=== PATIENT | female | born 1975 | race Caucasian/White ===

== ENCOUNTER 2023-12-12 14:58 | Emergency (ER) | payer OTHER, SELFPAY ==
[2023-12-12 15:08] VITALS: BP 131/89; PULSE 87; RESP 18; TEMP 36.9; O2SAT 97; BMI 31.3
[2023-12-12 15:22] LABS: Appearance Urine Clear (Clear); Bilirubin Urine Negative (Negative); Blood Urine Negative (Negative); Color Urine Yellow (Yellow); Glucose Urine Negative (Negative); Ketones Urine Negative (Negative); Leukocyte Esterase Urine Negative (Negative); Nitrite Urine Negative (Negative); Protein Urine Negative (Negative); Specific Gravity Urine 1.015 (1.000-1.030); Urobilinogen Urine 0.2 (0.2-1.0)
--- NOTE | 2023-12-12 15:41 | CRLHL7_ITS ---
For Patients: As a result of the Century Cures Act, medical imaging exams and procedure reports are released immediately into your electronic medical record. You may view this report before your referring provider. If you have questions, please contact your health care provider. Indication: UPPER ABD PAIN Technique: CT abdomen/pelvis with IV contrast, 98 mL Isovue 370 Comparison: None Findings: Lower thorax: Unremarkable Abdomen/pelvis: The liver, gallbladder and biliary system, pancreas, adrenal glands, kidneys, ureters, and bladder are unremarkable in appearance. The uterus is within normal limits in size. Well-circumscribed slightly heterogeneously enhancing lesion in the anterior uterine body measuring approximately 2.4 centimeters favored to represent an intramural/subserosal fibroid (series number 5, image 101). The right ovary is within normal limits in size and appearance, containing a corpus luteal cyst measuring 2.3 centimeters in greatest dimension. There is no evidence of bowel obstruction or inflammation. The appendix is within normal limits in appearance with either tiny appendicolith versus retained enteric contrast (series number 2, image 103 and 104). Moderate stool burden in the colon. Few colonic diverticula without CT evidence of acute diverticulitis. No free fluid or free air. No abscess. No abdominopelvic lymphadenopathy. The vasculature is unremarkable in appearance. Soft tissue/musculoskeletal: Small fat containing umbilical hernia. The osseous structures are unremarkable in appearance. Impression: 1. No CT evidence of an acute process involving the abdomen or pelvis. 2. Incidental findings as detailed above. Please note that all CT scans at this facility use dose modulation, iterative reconstruction, and/or weight-based dosing when appropriate to reduce radiation dose to as low as reasonably achievable. Dictated by Sage Torres MD @ 12/12/2023 4:28:32 PM (Electronically Signed)
--- NOTE | 2023-12-12 15:49 | ED.ABDPAIN ---
HPI - Abdominal Pain General Chief Complaint: Abdominal Pain Stated Complaint: Abdominal pain Time Seen by Provider: 12/12/23 15:07 History of Present Illness HPI narrative: Patient is a 48-year-old woman who had 36 hours of mid upper abdominal pain earlier in the week. This resolved with symptomatic treatment that she woke this morning and now has had approximately 6 hours of epigastric and mid abdominal pain. She has no reflux symptoms. Patient takes Nexium regularly. She has had no change in her bowel or bladder no fevers no chills no night sweats. The pain is moderate in extends through to her back. No nausea or vomiting. Related Data Home Medications ?Medication ?Instructions ?Recorded ?Confirmed amlodipine 5 mg tablet 5 mg PO DAILY 03/23/23 03/23/23 azithromycin 250 mg tablet 250 mg PO DIRECTED 03/23/23 03/23/23 bupropion HCl 150 mg tablet,12 hr 150 mg PO BID 03/23/23 03/23/23 sustained-release esomeprazole magnesium 40 mg 40 mg PO DAILY 03/23/23 03/23/23 capsule,delayed release gabapentin 400 mg capsule 400 mg PO 3XD 03/23/23 03/23/23 losartan 100 mg tablet 100 mg PO DAILY 03/23/23 03/23/23 semaglutide (weight loss) 1 mg/0.5 mg subcut 03/23/23 03/23/23 mL subcutaneous pen injector (Wegovy) semaglutide (weight loss) 1.7 mg subcut 03/23/23 03/23/23 mg/0.75 mL subcutaneous pen injector (Wegovy) Allergies Allergy/AdvReac Type Severity Reaction Status Date / Time No Known Drug Allergies Allergy Verified 12/12/23 15:54 Review of Systems Status of ROS Reports: 10 or more systems reviewed and unremarkable except as noted in History and below [facility] Medical History Bronchitis ?J40 - Bronchitis, not specified as acute or chronic (ICD-10) Cough ?R05.9 - Cough, unspecified (ICD-10) Exam Narrative: Exam Narrative: EXAM GENERAL: Patient appears comfortable and well. EYES: No scleral icterus. LYMPH: No supraclavicular or cervical lymphadenopathy. SKIN: Visible skin seen during exam normal or with benign process only. EXT: No dependent lower extremity pedal edema. HEART: Regular rate and rhythm with no murmurs, rubs, or gallops. LUNGS: Clear to auscultation bilaterally with no crackles or wheezes. ABD: Soft, non tender, non distended. PSYCH: Good eye contact, speech is not pressured. Const: Vital Signs, click to edit/add: Vital Signs - 24 hr 12/12/23 15:08 Temperature 98.4 F Pulse Rate [Pulse Oximeter] 87 Respiratory Rate 18 Blood Pressure [Ri ght Upper Arm] 131/89 Pulse Oximetry 97 Oxygen Delivery Me thod Room Air Course Course ED Course: Patient seen and examined. CBC CMP lipase CT abdomen pelvis UA pending. Vital Signs Vital signs: Initial Vital Signs Temperature 98.4 F 12/12/23 15:08 Temperature Source Temporal Artery Scan 12/12/23 15:08 Pulse Rate 87 12/12/23 15:08 Respiratory Rate 18 12/12/23 15:08 Blood Pressure 131/89 12/12/23 15:08 Blood Pressure Mean 103 12/12/23 15:08 Pulse Oximetry 97 12/12/23 15:08 Oxygen Delivery Method Room Air 12/12/23 15:08 Vital Signs Temperature 98.4 F 12/12/23 15:08 Pulse Rate 87 12/12/23 15:08 Respiratory Rate 18 12/12/23 15:08 Blood Pressure 131/89 12/12/23 15:08 Pulse Oximetry 97 12/12/23 15:08 Oxygen Delivery Method Room Air 12/12/23 15:08 Temperature 98.4 F 12/12/23 15:08 Pulse Rate 87 12/12/23 15:08 Respiratory Rate 18 12/12/23 15:08 Blood Pressure 131/89 12/12/23 15:08 Pulse Oximetry 97 12/12/23 15:08 Oxygen Delivery Method Room Air 12/12/23 15:08 MDM - Abdominal Pain MDM Narrative Medical decision making narrative: Patient is a 48-year-old woman comes in today with intermittent epigastric and mid abdominal pain. She has had similar problems in the past. She has had no fevers no chills no night sweats CT of the abdomen pelvis shows no obvious cause for symptoms she does have simple ovarian cyst umbilical hernia which is not incarcerated and uterine fibroid. Labs are reassuring ultrasound of the right upper quadrant upon my review shows no acute abnormalities. At this time she will continue current medications. She does have follow-up with primary care and medical assistant ob gyn. Will give her limited number of [place] to help her get some relief in the interim follow-up a p.r.n. basis as described. Lab Data Labs: Lab Results 12/12/23 12/12/23 Range/Units 15:55 Unknown WBC 7.71 (4.50-11.00) K/uL RBC 4.48 (4.00-5.20) m/uL Hgb 13.2 (12.0-16.0) gm/dL Hct 41.0 (33.0-51.0) % MCV 92 (80-100) fL MCH 30 (26-34) pg MCHC 32 (32-36) gm/dL RDW Coeff of Keith 13.6 (11.5-15.5) % Plt Count 270 (140-440) K/uL Neut % (Auto) 55.3 (42.0-72.0) % Lymph % (Auto) 33.7 (20-44) % Hopewell % (Auto) 7.3 (0.0-11.0) % Eos % (Auto) 3.1 (0.0-7.0) % Baso % (Auto) 0.3 (0.0-3.0) % Neut # (Auto) 4.27 (1.7-7.0) K/uL Lymph # (Auto) 2.60 (0.90-2.90) K/uL Hopewell # (Auto) 0.60 (0.00-0.90) K/UL Eos # (Auto) 0.24 (0.00-0.50) K/uL Baso # (Auto) 0.02 (0.00-0.30) K/uL Abs Immat Gran (auto) 0.02 (0.00-0.30) K/uL Imm/Tot Granulo (auto) 0.3 % Sodium 138 (135-149) mmol/L Potassium 4.3 (3.6-5.1) mmol/L Chloride 105 (96-114) mmol/L Carbon Dioxide 26 (20-32) mmol/L Anion Gap 7 (7-15) mEq/L BUN 17 (5-24) mg/dL Creatinine 0.7 (0.5-1.5) mg/dL Estimated Creat Clear 96.62 Estimated GFR 107 ml/min Glucose 96 (60-115) mg/dL Calcium 9.5 (8.4-10.6) mg/dL Total Bilirubin 0.2 (0.1-1.5) mg/dL AST 24 (12-35) U/L ALT 24 (4-35) U/L Alkaline Phosphatase 81 (40-150) U/L Total Protein 7.2 (6.0-8.3) g/dL Albumin 4.6 (3.3-5.0) g/dL Lipase 83 (23-300) U/L Urine Color Yellow (Yellow) Urine Appearance Clear (Clear) Urine pH 7.0 (5.0-8.5) Ur Specific Marlin 1.015 (1.000-1.030) Urine Protein Negative (Negative) Urine Glucose (UA) Negative (Negative) Urine Ketones Negative (Negative) Urine Blood Negative (Negative) Urine Nitrite Negative (Negative) Urine Bilirubin Negative (Negative) Urine Urobilinogen 0.2 (0.2-1.0) Ur Leukocyte Esterase Negative (Negative) Discharge Plan Discharge Clinical Impression: Abdominal pain Patient Disposition: Home, Self-Care Condition: Stable Instructions: Abdominal Pain (ED) Additional Instructions: Etiology of symptoms is unclear Advance diet activity as tolerated. [place] for extreme pain Follow-up as discussed. Continue current medication. Activity Level: No Restrictions Discharge Diet: Regular Prescriptions: No Action azithromycin 250 mg tablet 250 mg PO DIRECTED Wegovy 1.7 mg/0.75 mL pen injector subcut Wegovy 1 mg/0.5 mL pen injector subcut esomeprazole magnesium 40 mg capsule,delayed release(DR/EC) 40 mg PO DAILY amlodipine 5 mg tablet 5 mg PO DAILY gabapentin 400 mg capsule 400 mg PO 3XD bupropion HCl 150 mg tablet sustained-release 12 hr 150 mg PO BID losartan 100 mg tablet 100 mg PO DAILY Follow Up/Referrals: Christina Ko MD [Primary Care Provider] - Stand Alone Forms: Group Therapy Records Info Instructions
[2023-12-12 16:02] LABS: Basophils Absolute Auto 0.02 K/uL (0.00-0.30); Basophils Percent Auto 0.3 % (0.0-3.0); Eosinophils Absolute Auto 0.24 K/uL (0.00-0.50); Eosinophils Percent Auto 3.1 % (0.0-7.0); Hemoglobin* 13.2 gm/dL (12.0-16.0); Immature Granulocytes Abs Auto 0.02 K/uL (0.00-0.30); Immature Granulocytes Pct Auto 0.3 %; Lymphocytes Percent Auto 33.7 % (20-44); Mean Corpuscular HGB Conc 32 gm/dL (32-36); Mean Corpuscular Hemoglobin 30 pg (26-34); Mean Corpuscular Volume 92 fL (80-100); Monocytes Percent Auto 7.3 % (0.0-11.0); Neutrophils Absolute Auto 4.27 K/uL (1.7-7.0); Neutrophils Percent Auto 55.3 % (42.0-72.0); Platelet Count* 270 K/uL (140-440); RDW Coefficient of Variation % 13.6 % (11.5-15.5); Red Blood Count 4.48 m/uL (4.00-5.20); White Blood Count* 7.71 K/uL (4.50-11.00)
[2023-12-12 16:08] LABS: Slide Review Reflex No
[2023-12-12 16:17] LABS: Albumin* 4.6 g/dL (3.3-5.0); Chloride* 105 mmol/L (96-114); Sodium* 138 mmol/L (135-149)
[2023-12-12 16:18] LABS: Potassium* 4.3 mmol/L (3.6-5.1)
[2023-12-12 16:20] LABS: Alkaline Phosphatase* 81 U/L (40-150); Anion Gap 7 mEq/L (7-15); Aspartate Amino Transferase* 24 U/L (12-35); Bilirubin Total* 0.2 mg/dL (0.1-1.5); Blood Urea Nitrogen* 17 mg/dL (5-24); Carbon Dioxide* 26 mmol/L (20-32); Creatinine* 0.7 mg/dL (0.5-1.5); Est. Creatinine Clearance* 96.62; Estimated Glomerular Filt Rate 107 ml/min; Lipase* 83 U/L (23-300); Total Protein* 7.2 g/dL (6.0-8.3)
[2023-12-12 16:21] LABS: Alanine Aminotransferase* 24 U/L (4-35); Calcium* 9.5 mg/dL (8.4-10.6); Glucose* 96 mg/dL (60-115)
--- NOTE | 2023-12-12 16:50 | CRLHL7_ITS ---
For Patients: As a result of the Century Cures Act, medical imaging exams and procedure reports are released immediately into your electronic medical record. You may view this report before your referring provider. If you have questions, please contact your health care provider. INDICATION: RUQ Pain COMPARISON: Same day CT abdomen/pelvis TECHNIQUE: Ultrasound abdomen limited. Real time alvarez scale imaging and color Doppler analysis was performed of the abdomen. FINDINGS: Liver: The liver is normal in size measuring 16.5 cm in length. Normal echogenicity. No focal liver lesions identified. Gallbladder: No stones or sludge. No wall thickening or pericholecystic fluid. Negative sonographic Coelho sign. Bile ducts: The common bile duct measures 1 mm in diameter. Pancreas: Within normal limits where seen. Right kidney: The right kidney measures 10.4 cm in length. No hydronephrosis, calculus, or mass. Vascular: Normal caliber abdominal aorta. The IVC appears patent. The main portal vein is patent with normal flow direction. IMPRESSION: Unremarkable abdominal ultrasound. Dictated by Sage Torres MD @ 12/12/2023 6:41:17 PM (Electronically Signed)
== END 2023-12-12 18:18 | disposition home or self-care (01) ==
PROVIDERS: Emergency Provider Internal Medicine; PCP Family Medicine
DX: R10.13 Epigastric pain (principal)
CPT/HCPCS: 36415; 74177; 76705; 80053; 81003; 83690; 85025; 99283; 99284; Q9967

== ENCOUNTER 2024-06-27 06:34 | Emergency (ER) | payer OTHER, SELFPAY ==
--- OUTSIDE RECORDS SUMMARY | 2024-06-27 06:36 | XMS_ITS | Encounter Summary ---
Author Organization [facility] Address [address] [place] [address] Care Team Providers Care Digital Sales Manager Name Role Phone Christina Ko M.D. Primary Care Provider Encounter Details Date Type Department Care Team (Late st Contact Info) Description 06/16/2024 Orders Only Department of Family Medicine, [facility], in [place], [place] [address] [place] [phone] Christina Ko M.D. [address] [place] [phone] Social History Tobacco Use Types Packs/Day Years Used Date Smoking Tobacco: Former Cigarettes Smokeless Tobacco: Never [facility] Utilities Answer Date Recorded In the past 12 months has th e electric, gas, oil, or water company threatened to shut off services in your home? No 10/20/2023 PHQ-2 Answer Date Recorded PHQ-2 Score 0 08/18/2023 Exercise Vital Sign Answer Date Recorde d On average, how many days pe r week do you engage in moderate to strenuous exercise (like a brisk walk)? 4 days 10/20/2023 On average, how many minutes do you engage in exercise at this level? 60 min 10/20/2023 Hunger Vital Sign Answer Date Recorded Within the past 12 months, y ou worried that your food would run out before you got the money to buy more. Never true 10/20/19 24 Within the past 12 months, t he food you bought just didn't last and you didn't have money to get more. Never true 10/20/2023 PRAPARE - Transportation Answer Date Re corded In the past 12 months, has l ack of transportation kept you from medical appointments or from getting medications? No 10/04 In the past 12 months, has l ack of transportation kept you from meetings, work, or from getting things needed for daily living? No 10/20/2023 Nutrition Answer Date Recorded On average, how many serving s of fruits and vegetables do you eat per day (serving size is equal to 1 cup or approximately the size of a tennis ball)? 0-2 10/20/2023 Dental Answer Date Recorded Dental: Regular Dentist Yes 10/20/19 24 Employment Answer Date Recorded Employment status Employed and actively working without restrictions 10/20/2023 Housing Stability Answer Date Recorded What is your living situation today? I have a [facility] place to live 10/20/2023 Comments No Sex and Gender Information Value Date Recorded Sex Assigned at Female 10/30/2022 11:02 AM CDT Legal Sex Female 1:08 PM CDT Gender Identity Female 10/30/2022 11:02 AM CDT Sexual Orientation Straight 10/30/2022 11 :02 AM CDT documented as of this encounter Plan of Treatment Not on file documented as of this encounter Visit Diagnoses Not on filedocumented in this encounter Care Teams Digital Sales Manager Relationship Specialty Start Date End Date Christina Ko M.D. [address] [place] [phone] PCP - General Family Medicine 08/15/22 documented as of this encounter
--- OUTSIDE RECORDS SUMMARY | 2024-06-27 06:36 | XMS_ITS | Encounter Summary ---
Author Organization [facility] Address [address] [place] [address] Care Team Providers Care Stone Setter Name Role Phone Christina Ko M.D. Primary Care Provider Reason for Visit * Reason Onset Date Comments Quality 05/17/2024 HTN Encounter Details Date Type Department Care Team (Late st Contact Info) Description 05/17/2024 Clinical Communication Department of Family Medicine, [facility], in [place], [place] [address] [place] [phone] Richelle Adams, RJosé MiguelN. Quality (HTN) Social History Tobacco Use Types Packs/Day Years Used Date Smoking Tobacco: Former Cigarettes Smokeless Tobacco: Never [facility] Utilities Answer Date Recorded In the [...] your living situation today? I have a [facility] place to live 10/20/2023 Comments Unknown Sex and Gender Information Value Date Recorded Sex Assigned at Female 10/30/2022 11:02 AM CDT Legal Sex Female 1:08 PM CDT Gender Identity Female 10/30/2022 11:02 AM CDT Sexual Orientation Straight 10/30/2022 11 :02 AM CDT documented as of this encounter Last Filed Vital Signs Vital Sign Reading Time Taken Comments Blood Pressure 150/107 05/18/2024 4:00 AM PAPER SLITTER Juan Diego e Reading Pulse - - Temperature - - Respiratory Rate - - Oxygen Saturation - - Inhaled Oxygen Concentration - - Weight - - Height - - Body Mass Index - - documented in this encounter Plan of Treatment Not on file documented as of this encounter Visit Diagnoses Not on filedocumented in this encounter Care Teams Stone Setter Relationship Specialty Start Date End Date Christina Ko M.D. [address] [place] [phone] PCP - General Family Medicine 08/15/22 documented as of this encounter
--- OUTSIDE RECORDS SUMMARY | 2024-06-27 06:37 | XMS_ITS | Clinical Summary ---
Author Organization [facility] Address [address] [place] [id number] Care Team Providers Care Chief Revenue Officer Name Role Phone Venu Mcclelland MD Unavailable [phone] Ramsey Mahoney MD Unavailable [phone] Barron So DO Unavailable [phone] Christina Ko MD Primary Care Provider [phone] Allergies Active Allergy Reactions Criticality Noted Date Comments Adhesive Tape 01/15/2016 Erythromycin Cramps 09/09/2023 Abdominal pain Promethazine Other (See Comments) High 08/29/2022 Uncontrollable movements Patient stated she had uncontrollable movements Medications esomeprazole (NEXIUM) [address] capsule Take 40 mg by mouth daily Active Melatonin 10 MG TABS tablet Take 10 mg by mouth at bedtime Active cetirizine (ZYRTEC) 10 MG tablet Take 10 mg by mouth daily Active sucralfate (CARAFATE) 1 GM tablet Take 1 g by mouth 2 times daily as needed (reflux) Active doxylamine (UNISOM) 25 MG TABS tablet Take 25 mg by mouth nightly as needed for sleep Active CALCIUM PO Take 1 chew tab by mouth daily Active UNABLE TO FIND MEDICATION NAME: vitamin C gummy. 4 gummies PO daily Active Biotin 72162 MCG TABS Take 1 tablet by mouth daily Active magnesium 500 MG TABS Take 500-2,000 mg by mouth nightly as needed (restless legs) Active diphenhydrAMINE (BENADRYL) 50 MG capsule Take 50 mg by mouth nightly as needed for sleep 05/07/23: Patient takes most nights Active amLODIPine (NORVASC) 5 MG tabletIndications :Elevated blood pressure reading without diagnosis of hypertension Take 1 tablet (5 mg) by mouth daily 90 tablet 3 4 Active losartan (COZAAR) 100 MG tabletIndications :Elevated blood pressure reading without diagnosis of hypertension Take 1 tablet (100 mg) by mouth daily 90 tablet 3 4 Active rOPINIRole (REQUIP) 2 MG tabletIndications :Restless leg syndrome Take 1 tablet (2 mg) by mouth at bedtime 90 tablet 3 4 Active buPROPion (WELLBUTRIN XL) 300 MG 24 hr tabletIndications :Major depressive disorder in full remission, unspecified whether recurrent Take 1 tablet (300 mg) by mouth every morning 90 tablet 1 4 Active gabapentin (NEURONTIN) 400 MG capsuleIndication s:Neuropathy Take 1 to 3 capsules orally at bedtime as needed for treatment of neuropathy. 90 capsule 4 4 Active gabapentin (NEURONTIN) 400 MG capsuleIndication s:Neuropathy Take 1 to 3 capsules orally at bedtime as needed for treatment of neuropathy. 4 Active ondansetron (ZOFRAN) 4 MG tablet Take 4 mg by mouth every 8 hours as needed for nausea Active Active Problems Problem Noted Date Diagnosed Date Abnormal Pap smear of cervix 07/21/2023 Overview (07/23/2023): 2020 COLP (per office visit note. No results to view) 07/14/23 NIL pap, neg HPV. Plan cotest in 3 yrs per provider CIDP (chronic inflammatory demyelinating polyneu ropathy) 05/07/2023 Anxiety 08/30/2022 Depression 08/30/2022 Gastroesophageal reflux disease 08/30/2022 Primary hypertension 08/30/2022 Restless leg syndrome 08/30/2022 Obesity 11/24/2020 Neuropathy 01/16/2016 Immunizations Name Administration Dates Next Due Influenza Vaccine >6 months,quad, PF 02/12/2023 MMR (MMRII) 07/08/2022 Family History Medical History Relation Comments Colon Cancer No family hx of Social History Tobacco Use Types Packs/Day Years Used Date Smoking Tobacco: Former Cigarettes 1 25 Smokeless Tobacco: Never Tobacco Cessation:Counseling Given: Not Answered Comments:vape Alcohol Use Standard Drinks/Week Comments Not Currently 0 (1 standard drink = 0.6 oz pur e alcohol) Social Connection and Isolation Panel [NHANES] A nswer Date Recorded In a typical week, how many times do you talk on the phone with family, friends, or neighbors? Never 07/23/19 How often do you get togethe r with friends or relatives? Never 07/23/2023 How often do you attend chur ch or moravian services? 1 to 4 times per year 07/23/2023 Do you belong to any clubs o r organizations such as oriental orthodox groups, unions, fraternal or athletic groups, or school groups? No 07/23/2023 How often do you attend meet ings of the clubs or organizations you belong to? Never 07/23/2023 Are you , , di vorced, , never , or living with a partner? 07/23/2023 AUDIT-C Answer Date Recorded Q1: How often do you have a drink containing alc ohol? 2-3 times a week 07/23/2023 Q2: How many drinks containi ng alcohol do you have on a typical day when you are drinking? 3 or 4 07/23/2023 Q3: How often do you have si x or more drinks on one occasion? Less than monthly 07/23/2023 PHQ-2 Answer Date Recorded PHQ-2 Score 1 07/27/2023 [facility] - Occupational Stress Questionnaire Answer Date Recorded Do you feel stress - tense, restless, nervous, or anxious, or unable to sleep at night because your mind is troubled all the time - these days? Very much 07/23/2023 Exercise Vital Sign Answer Date Recorde d On average, how many days pe r week do you engage in moderate to strenuous exercise (like a brisk walk)? 3 days 07/23/2023 On average, how many minutes do you engage in exercise at this level? 150+ min 07/23/2023 Adolescent Education Answer Date Record ed Getting School Help Needed Not on file 05/07 Food Insecurity Answer Date Recorded Within the past 12 months, d id you worry that your food would run out before you got money to buy more? No 07/23/2023 Within the past 12 months, d id the food you bought just not last and you didn t have money to get more? No 07/23/2023 Housing Stability Answer Date Recorded Do you have housing? (Gris luna is defined as stable permanent housing and does not include staying ouside in a car, in a tent, in an abandoned building, in an overnight care home, or couch-surfing.) Yes 07/23/2023 Are you worried about losing your housing? No 07/23/2023 Financial Resource Strain Answer Date R ecorded Within the past 12 months, h ave you or your family members you live with been unable to get utilities (heat, electricity) when it was really needed? No 07/23/2023 Transportation Needs Answer Date Record ed Within the past 12 months, h as lack of transportation kept you from medical appointments, getting your medicines, non-medical meetings or appointments, work, or from getting things that you need? No 07/23/2023 Interpersonal Safety Answer Date Record ed Do you feel physically and e motionally safe where you currently live? Yes 07/27/2023 Within the past 12 months, h ave you been hit, slapped, kicked or otherwise physically hurt by someone? No 07/27/2023 Within the past 12 months, h ave you been humiliated or emotionally abused in other ways by your partner or ex-partner? No 07/27/2023 Comments No Sex and Gender Information Value Date Recorded Sex Assigned at Not on file Legal Sex Female 8:32 PM CHIEF ARCHITECT Gender Identity Not on file Sexual Orientation Not on file Last Filed Vital Signs Vital Sign Reading Time Taken Comments Blood Pressure 104/83 09/09/2023 2:50 PM CDT Pulse 85 09/09/2023 2:50 PM CDT Temperature 37 C (98.6 F) 05/08/2023 7:39 PM CHIEF ARCHITECT Respiratory Rate 16 09/09/2023 2:50 PM CDT Oxygen Saturation 94% 09/09/2023 2:40 PM CDT Inhaled Oxygen Concentration - - Weight 93.4 kg (206 lb) 09/09/2023 1:35 PM CDT Height 170.8 cm (5' 7.25) 09/09/2023 1:35 PM CD T Body Mass Index 32.02 09/09/2023 1:35 PM CDT Plan of Treatment Health Maintenance Due Date Last Done Comments CT COLONOGRAPHY 1975 DEPRESSION ACTION PLAN 1975 FIT 1975 FLEX SIG 1975 PHQ-9 1975 sDNA (Cologuard) 1975 HEPATITIS B IMMUNIZATION (1 of 3 - 19+ 3-dose series) 1995 COVID-19 Vaccine ( season) 2023 INFLUENZA VACCINE (#1) 2023 02/12/2023 BMP 05/08/2024 05/08/2023, 05/07/2023 ANNUAL REVIEW OF HM ORDERS 07/26/2024 07/27/2023 YEARLY PREVENTIVE VISIT 08/17/2024 08/18/19 24, 07/27/2023, 07/14/2023 MAMMO SCREENING 12/09/2024 12/09/2022, 12/09/2022 ZOSTER IMMUNIZATION (1 of 2) 2026 HPV FOLLOW-UP 07/13/2026 07/14/2023 PAP FOLLOW-UP 07/13/2026 07/14/2023 DIABETES SCREENING 07/26/2026 07/27/2023, 05/08/2023, 05/07/2023 ADVANCE CARE PLANNING 07/26/2028 07/27/2023 LIPID 07/26/2028 07/27/2023 DTAP/TDAP/TD IMMUNIZATION (2 - Td or Tdap) 08/17/2033 08/18/2023 COLONOSCOPY 09/08/2033 09/09/2023, 09/09/2023 COLORECTAL CANCER SCREENING 09/08/2033 PAP Discontinued 07/14/2023 HEPATITIS C SCREENING Completed 07/27/2023 HIV SCREENING Completed 07/27/2023 HPV IMMUNIZATION Aged Out No longer e ligible based on patient's age to complete this topic MENINGITIS IMMUNIZATION Aged Out No l onger eligible based on patient's age to complete this topic Pneumococcal Vaccine: Pediatrics (0 to 5 Years) and At-Risk Patients (6 to 49 Years) Aged Out No longer eligible b ased on patient's age to complete this topic Procedures Procedure Name Priority Date/Time Associated Diagnosis Comments COLONOSCOPY Routine 09/09/2023 1:17 PM CDT HEMOGLOBIN A1C Routine 07/27/2023 1:47 PM CDT Class 1 obesity due to excess calories without serious comorbidity with body mass index (BMI) of 32.0 to 32.9 in adult HIV ANTIGEN ANTIBODY COMBO Routine 07/27/2023 1:47 PM CDT Screening for HIV (human immunodeficiency virus) HEPATITIS C SCREEN REFLEX TO HCV RNA QUANT AND GENOTYPE Routine 07/27/2023 1:47 PM CDT Need for hepatitis C screening test LIPID PROFILE Routine 07/27/2023 1:47 PM CDT Screening for hyperlipidemia HPV HIGH RISK TYPES DNA CERVICAL Routine 07/14/2023 4:10 PM CDT Screening for malignant neoplasm of cervix GYNECOLOGIC CYTOLOGY Routine 07/14/2023 4:10 PM CDT Screening for malignant neoplasm of cervix BASIC METABOLIC PANEL Routine 05/08/2023 7:21 AM CHIEF ARCHITECT from Last 3 Months or Most Recently Relevant to Health Maintenance Results * COLONOSCOPY (09/09/2023 1:17 PM CDT) COLONOSCOPY [facility] Patient Name: Tamiko Massey Procedure Date: 09/09/2023 1:17 PM Date of : 1975 Admit Type: Outpatient Age: 48 Gender: Female Attending MD: RADHA RIVERS MD, Total Sedation Time: 28 minutes Instrument Name: 223 - Adult Colonoscope Procedure: Colonoscopy Indications: Screening for colorectal malignant neoplasm Providers: RADHA RIVERS MD (Doctor) Referring MD: BARRON SO MD (Referring MD) Medicines: Fentanyl 175 micrograms IV, Midazolam 4 mg IV Complications: No immediate complications. Procedure: Pre-Anesthesia Assessment: - Prior to the procedure, a History and Physical was performed, and patient medications and allergies were reviewed. The patient is competent. The risks and benefits of the procedure and the sedation options and risks were discussed with the patient. All questions were answered and informed consent was obtained. Patient identification and proposed procedure were verified by the physician and the nurse in the endoscopy suite. Mental Status Examination: alert and oriented. Airway Examination: normal oropharyngeal airway and neck mobility. Respiratory Examination: clear to auscultation. CV Examination: normal. Prophylactic Antibiotics: The patient does not require prophylactic antibiotics. Prior Anticoagulants: The patient has taken no anticoagulant or antiplatelet agents. ASA Grade Assessment: II - A patient with mild systemic disease. After reviewing the risks and benefits, the patient was deemed in satisfactory condition to undergo the procedure. The anesthesia plan was to use moderate sedation / analgesia (conscious sedation). Immediately prior to administration of medications, the patient was re-assessed for adequacy to receive sedatives. The heart rate, respiratory rate, oxygen saturations, blood pressure, adequacy of pulmonary ventilation, and response to care were monitored throughout the procedure. The physical status of the patient was re-assessed after the procedure. After obtaining informed consent, the colonoscope was passed under direct vision. Throughout the procedure, the patient's blood pressure, pulse, and oxygen saturations were monitored continuously. The Olympus Adult Colonoscope, Model # [id number], [employer] # [id number] was introduced through the anus and advanced to the cecum, identified by appendiceal orifice and ileocecal valve. The colonoscopy was performed without difficulty. The patient tolerated the procedure. The quality of the bowel preparation was good. Scope withdrawal time was 15 minutes. Findings: The entire examined colon appeared normal on direct and retroflexion views. Impression: - The entire examined colon is normal on direct and retroflexion views. - No specimens collected. Recommendation: - Discharge patient to home (ambulatory). - Repeat colonoscopy in 10 years for screening purposes. Recommend mac sedation next time for patient tolerance Procedure Code(s): --- Professional --- G0121, Colorectal cancer screening; colonoscopy on individual not meeting criteria for high risk Diagnosis Code(s): --- Professional --- Z12.11, Encounter for screening for malignant neoplasm of colon CPT copyright 2021 [employer]. All rights reserved. The codes documented in this report are preliminary and upon superintendent commissary review may be revised to meet current compliance requirements. Radha Rivers MD _ RADHA RIVERS MD 09/09/2023 2:18:48 PM I was physically present for the entire viewing portion of the exam. RADHA RIVERS MD Number of Addenda: 0 Note Initiated On: 09/09/2023 1:17 PM Procedure Date: 09/09/2023 1:17:20 PM Scope Withdrawal Time: 0 hours 14 minutes 55 seconds Total Procedure Duration: 0 hours 28 minutes 45 seconds Estimated Blood Loss: Scope In: 1:45:08 PM Scope Out: 2:13:53 PM RADIOLOGY RESULTS 09/09/2023 1:17 PM CDT Barron So DO PROCEDURES Final Result RADIOLOGY RESULTS * HIV Antigen Antibody Combo (07/27/2023 1:47 PM CDT) HIV Antigen Antibody Combo Nonreactive Nonreactive 07/28/2023 12:14 AM CDT [facility] Comment:Negative HIV-1 p24 a ntigen and HIV-1/2 antibody screening test results usually indicate the absence of HIV-1 and HIV-2 infection. However, such negative results do not rule-out acute HIV infection. If acute HIV-1 or HIV-2 infection is suspected, detection of HIV-1 or HIV-2 RNA is recommended. Blood BLOOD SPECIMEN / Unknown Venipuncture / Unknown 07/27/2023 1:47 PM CDT 07/27/2023 1:48 PM CDT [facility]OD ORDERABLES Final Re sult Performing Organization Address [facility] Co de Phone Number LABORATORY [facility] [place] [facility] [address] [facility], [address] [id number] * Hepatitis C Screen Reflex to HCV RNA Quant and Genotype (07/27/2023 1:47 PM CDT) [facility] Hepatitis C Antibody Nonreactive Nonreactive 07/28/2023 12:02 AM CDT [facility] Comment:A nonreactive screen ing test result does not exclude the possibility of exposure to or infection with HCV. Nonreactive screening test results in individuals with prior exposure to HCV may be due to antibody levels below the limit of detection of this assay or lack of reactivity to the HCV antigens used in this assay. Patients with recent HCV infections (<3 months from time of exposure) may have false- negative HCV antibody results due to the time needed for seroconversion (average of 8 to 9 weeks). Blood BLOOD SPECIMEN / Unknown Venipuncture / Unknown 07/27/2023 1:47 PM CDT 07/27/2023 1:48 PM CDT [facility] LAB - BLOOD ORDERABLES Final Re sult Performing Organization Address [facility] Co de Phone Number LAB[facility]ATORY [facility] [place] [facility] [address] [facility], [address] [id number] [place] [address] * (ABNORMAL) Lipid Profile (07/27/2023 1:47 PM CDT) [facility] Cholesterol 183 <200 mg/dL 07/27/2023 11:47 PM CDT [facility] Triglycerides 178(H) <150 mg/dL 07/27/2023 11:47 PM CDT [facility] Direct Measure HDL 57 >=50 mg/dL 07/27/2023 11:47 PM CDT [facility] LDL Cholesterol Calculated 90 <=100 mg/dL 07/27/2023 11:47 PM CDT [facility] Non HDL Cholesterol 126 <130 mg/dL 07/27/2023 11:47 PM CDT [facility] Patient Fasting > 8hrs? No 07/27/2023 11:47 PM CDT [facility] Blood BLOOD SPECIMEN / Unknown Venipuncture / Unknown 07/27/2023 1:47 PM CDT 07/27/2023 1:48 PM CDT Narrative [facility] - 07/27/2023 11:47 PM CDT Cholesterol Desirable: <200 mg/dL Triglycerides Normal: Less than 150 mg/dL Borderline High: 150-199 mg/dL High: 200-499 mg/dL Very High: Greater than or equal to 500 mg/dL Direct Measure HDL Female: Greater than or equal to 50 mg/dL Male: Greater than or equal to 40 mg/dL LDL Cholesterol Desirable: <100mg/dL Above Desirable: 100-129 mg/dL Borderline High: 130-159 mg/dL High: 160-189 mg/dL Very High: >= 190 mg/dL Non HDL Cholesterol Desirable: 130 mg/dL Above Desirable: 130-159 mg/dL Borderline High: 160-189 mg/dL High: 190-219 mg/dL Very High: Greater than or equal to 220 mg/dL Barron So DO LAB - BLOOD ORDERABLES Final Re sult [facility] [place] [facility] [address] [facility], [address] [place] [address], [facility] * Hemoglobin A1c (07/27/2023 1:47 PM CDT) Hemoglobin A1C 5.2 0.0 - 5.6 % 07/27/2023 1:56 PM CDT [facility] Comment: Normal <5.7% Prediabetes 5.7-6.4% Diabetes 6.5% or higher Note: Adopted from ADA consensus guidelines. Blood BLOOD SPECIMEN / Unknown Venipuncture / Unknown 07/27/2023 1:47 PM CDT 07/27/2023 1:48 PM CDT Barron So DO LAB - BLOOD ORDERABLES Final Re sult LABORATORY [facility] [address] [facility] Lab (no room number, 1st floor of clinic) [place] [address], [facility] [phone] * Pap screen with HPV - recommended age 30 - 65 years (07/14/2023 4:10 PM CDT) Interpretation Negative for Intraepithelial Lesion or Malignancy (NILM) 07/17/2023 10:05 AM CDT [facility] Comment Papanicolaou Test Limitations: Cervical cytology is a screening test with limited sensitivity, and regular screening is critical for cancer prevention. Pap tests are primarily effective for the diagnosis/prevent ion of squamous cell carcinoma, not adenocarcinoma or other cancers. 07/17/2023 10:05 AM CDT [facility] Specimen Adequacy Satisfactory for evaluation, endocervical/colunga sformation zone component absent 07/17/2023 10:05 AM CDT [facility] Clinical Information none 07/17/2023 10:05 AM CDT [facility] LMP/Menopause Date 07/09/2023 07/17/2023 10:05 AM CDT [facility] Reflex Testing Yes regardless of result 07/17/2023 10:05 AM CDT [facility] Previous Abnormal? Yes Comment: hpvhr other/ colp 07/17/2023 10:05 AM CDT [facility] Previous Abnormal Diagnosis HPV HR OTHER POSITIVE AND COLP 07/17/2023 10:05 AM CDT [facility] Performing Labs The technical component of this testing was completed at [facility] 07/17/2023 10:05 AM CDT [facility] Brushing CERVIX UTERI STRUCTURE / Unknown Non-blood Collection / Unknown 07/14/2023 4:10 PM CDT 07/14/2023 4:19 PM CDT Venu Mcclelland MD LAB - BEAKER AP Final Resu lt [facility] Specialty Lab [address] [facility], [address] [address], [facility] * HPV High Risk Types DNA Cervical (07/14/2023 4:10 PM CDT) Other HR HPV Negative Negative 07/20/2023 4:23 PM CDT [facility] HPV16 DNA Negative Negative 07/20/2023 4:23 PM CDT [facility] HPV18 DNA Negative Negative 07/20/2023 4:23 PM CDT [facility] FINAL DIAGNOSIS This patient's sample is negative for HPV DNA. This test was developed and its performance characteristics determined by the [facility], [facility] Laboratory. It has not been cleared or approved by the FDA. The laboratory is regulated under CLIA as qualified to perform high-complexity testing. This test is used for clinical purposes. It should not be regarded as investigational or for research. METHODOLOGY: The Esteban Janelle 4800 system uses automated extraction, simultaneous amplification of HPV (L1 region) and beta-globin, followed by real time detection of fluorescent labeled HPV and beta globin using specific oligonucleotide probes. The test specifically identifies types HPV 16 DNA and HPV 18 DNA while concurrently detecting the rest of the high risk types (31, 33, 35, 39, 45, 51, 52, 56, 58, 59, 66 or 68). COMMENTS: This test is not intended for use as a screening device for woman under age 30 with normal cervical cytology. Results should be correlated with cytologic and histologic findings. Close clinical followup is recommended. 07/20/2023 4:23 PM CDT [facility] Brushing CERVIX UTERI STRUCTURE / Unknown Non-blood Collection / Unknown 07/14/2023 4:10 PM CDT 07/20/2023 8:13 AM CDT Venu Mcclelland MD LAB - BLOOD ORDERABLES Fin al Result [facility] Molecular [facility] [address] [facility] [address] [facility], [address] [place] [address], [facility] * Basic metabolic panel (05/08/2023 7:21 AM [facility]) Sodium 136 135 - 145 mmol/L 05/08/2023 7:57 AM [facility] Comment:Reference intervals for this test were updated on 12/30/2022 to more accurately reflect our healthy population. There may be differences in the flagging of prior results with similar values performed with this method. Interpretation of those prior results can be made in the context of the updated reference intervals. Potassium 4.4 3.4 - 5.3 mmol/L 05/08/2023 7:57 AM [facility] Chloride 106 98 - 107 mmol/L 05/08/2023 7:57 AM [facility] Carbon Dioxide (CO2) 23 22 - 29 mmol/L 05/08/2023 7:57 AM [facility] Anion Gap 7 7 - 15 mmol/L 05/08/2023 7:57 AM [facility] Urea Nitrogen 16.0 6.0 - 20.0 mg/dL 05/08/2023 7:57 AM [facility] Creatinine 0.68 0.51 - 0.95 mg/dL 05/08/2023 7:57 AM [facility] GFR Estimate >90 >60 mL/min/1. 73m2 05/08/2023 7:57 AM [facility] Calcium 9.0 8.6 - 10.0 mg/dL 05/08/2023 7:57 AM [facility] Glucose 96 70 - 99 mg/dL 05/08/2023 7:57 AM [facility] Blood STRUCTURE OF RIGHT UPPER LIMB / Unknown Venipuncture / Unknown 05/08/2023 7:21 AM CHIEF ARCHITECT 05/08/2023 7:25 AM [facility] Ramya Gunderson MD LAB - BLOOD ORDERABLES Fi nal Result LABORATORY [facility] [address], [address] [place] [address], [facility] [phone] from Last 3 Months or Most Recently Relevant to Health Maintenance Insurance [facility] Advance Directives For more information, please contact: [phone] * Full Code (Latest Code Status on File) Date Activated Date Inactivated Comments 05/07/2023 1:26 PM 05/08/2023 9:55 PM All basic and advanced life-sustaining interventions are performed as appropriate Question Answer Comments Code status determined by: Discussion with patie nt/ legal decision maker Care Teams Chief Revenue Officer Relationship Specialty Start Date End Date Christina Ko MD [address] [place] [address] LUIS ALFREDO Saavedra [phone] PCP - General 12/12/23 Venu Mcclelland MD [address] [facility] [address] [place] [address] Assigned OBGYN Provider 07/28/23 Ramsey Mahoney MD [address] [place] [address] Physician Neurology 08/04/23 [place] [address] [place] [address] Assigned PCP 08/27/23
--- OUTSIDE RECORDS SUMMARY | 2024-06-27 06:37 | XMS_ITS | Encounter Summary ---
Author Organization [facility] Address [address] [place] [address] Care Team Providers Care Winder Fixer Name Role Phone No Ref-Primary, Physician Primary Care Provider Venu Mcclelland MD Unavailable [phone] Ramsey Mahoney MD Unavailable [phone] Barron Chase DO Unavailable [phone] Christina Ko MD Primary Care Provider [phone] Encounter Details Date Type Department Care Team (Late st Contact Info) Description 06/29/2023 [facility] [place] [address] [address] Bettie Ramos Social History Tobacco Use Types Packs/Day Years Used Date Smoking Tobacco: Never Comments:vape Alcohol Use Standard Drinks/Week Comments Yes 0 (1 standard drink = 0.6 oz pur e alcohol) Adolescent Education Answer Date Record ed Getting School Help Needed Not on file 05/07 Comments Unknown Sex and Gender Information Value Date Recorded Sex Assigned at Not on file Legal Sex Female 8:32 PM SOA ENGINEER Gender Identity Not on file Sexual Orientation Not on file documented as of this encounter Plan of Treatment Not on file documented as of this encounter Visit Diagnoses Not on filedocumented in this encounter Care Teams Winder Fixer Relationship Specialty Start Date End Date No Ref-Primary, Physician PCP - General 05/04/23 12/11/23 Christina Ko MD [address] [place] [address] LUIS ALFREDO Saavedra [phone] PCP - General 12/12/23 Venu Mcclelland MD [address] [facility] [address] [place] [address] Assigned OBGYN Provider 07/28/23 Ramsey Mahoney MD 9 [place] [address] Physician Neurology 08/04/23 [place] [address] [place] [address] Assigned PCP 08/27/23 documented as of this encounter
--- OUTSIDE RECORDS SUMMARY | 2024-06-27 06:37 | XMS_ITS | Patient Health Record ---
Author Organization [facility] Address [address] [facility] [address] [place] [address] Support Name Relationship Address Phone Tamiko Massey Guarantor Unknown [phone] REASON FOR REFERRAL No Information PLAN OF TREATMENT No Information Insurance Providers Payer Name Payer Address Payer Phone Subscriber Number Group Number Insured Name Patient Relationship to Insured Coverage Start Date Coverage End Date [facility] [employer] [address] [place] [phone] [id number] Tamiko Santiago Self - patient is the insured
--- OUTSIDE RECORDS SUMMARY | 2024-06-27 06:37 | XMS_ITS | Encounter Summary ---
Author Organization [facility] Address [address] [place] [address] Care Team Providers Care Chemistry Laboratory Technician Name Role Phone No Ref-Primary, Physician Primary Care Provider Venu Mcclelland MD Unavailable [phone] Ramsey Mahoney MD Unavailable [phone] Barron Chase DO Unavailable [phone] Christina Ko MD Primary Care Provider [phone] Encounter Details Date Type Department Care Team (Late st Contact Info) Description 08/26/[address] [facility] [address] [place] [address] Neville Aranda Social History Tobacco Use Types Packs/Day Years Used Date Smoking Tobacco: Former Cigarettes 1 25 Smokeless Tobacco: Never Comments:vape Alcohol Use Standard Drinks/Week Comments Yes 0 (1 standard drink = 0.6 oz pur e alcohol) Social Connection and Isolation Panel [NHANES] A nswer Date Recorded In a typical week, how many times do you talk on the phone with family, friends, or neighbors? Never 07/23/19 24 How often do you get togethe r with friends or relatives? Never 07/23/2023 How often do you attend chur ch or sikhism services? 1 to 4 times per year 07/23/2023 Do you belong to any clubs o r organizations such as gnosticist groups, unions, fraternal or athletic groups, or [...] Answer Date Recorded PHQ-2 Score 1 07/27/2023 [facility] [place] of Occupat ional Health - Occupational Stress [...] Answer Date Recorded Do you have housing? 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 Gender Identity Not on file Sexual Orientation Not on file documented as of this encounter Plan of Treatment Not on file documented as of this encounter Visit Diagnoses Not on filedocumented in this encounter Care Teams Chemistry Laboratory Technician Relationship Specialty Start Date End Date No Ref-Primary, Physician PCP - General 05/04/23 12/11/23 Christina Ko MD [address] [place] [phone] PCP - General 12/12/23 Venu Mcclelland MD [address] [address] Assigned OBGYN Provider 07/28/23 Ramsey Mahoney MD 9 [place] [address] Physician Neurology 08/04/23 [place] [address] [place] [address] Assigned PCP 08/27/23 documented as of this encounter
--- OUTSIDE RECORDS SUMMARY | 2024-06-27 06:37 | XMS_ITS | Encounter Summary ---
Author Organization [facility] Address [address] [place] [address] Care Team Providers Care External Grinder Tender Name Role Phone Christina Ko M.D. Primary Care Provider Encounter Details Date Type Department Care Team (Latest Contact Info) Description 06/07/2024 3:35 PM FINISH REPAIR WORKER - 06/07/2024 11:59 PM FINISH REPAIR WORKER Hospital Encounter Department of Laboratory Medicine in [place], [place] [address] [place] [phone] Christina Ko M.D. [address] [place] [phone] Hypertension Essential Primary Discharge Disposition: Home or Self Care Social History Tobacco Use Types Packs/Day Years Used Date Smoking Tobacco: Former Cigarettes Smokeless Tobacco: Never [facility] Utilities Answer Date Recorded In the past 12 months has [facility] electric, gas, oil, or water [employer] threatened to shut off services in your [...] Date Recorded Dental: Regular Dentist Yes 10/20/19 Employment Answer Date Recorded Employment status Employed and actively working without restrictions 10/20/2023 Housing Stability Answer Date Recorded What is your living situation today? I have a [facility] place to live 10/20/2023 Comments No Sex and Gender Information Value Date Recorded Sex Assigned at Female 10/30/2022 11:02 AM CDT Legal Sex Female 1:08 PM CDT Gender Identity Female 10/30/2022 11:02 AM CDT Sexual Orientation Straight 10/30/2022 11 :02 AM CDT documented as of this encounter Medications at Time of Discharge albuterol 2.5 mg /3 mL nebulizer solution Inhale 2.5 mg every 6 (six) hours as needed. amLODIPine (Norvasc) 5 mg tablet Take 1 tablet (5 mg total) by mouth daily. 90 tablet 3 06/07/2024 biotin 1 mg tablet Take by mouth daily. 10,000 buPROPion (Wellbutrin SR) 150 mg 12 hr tablet Take 1 tablet (150 mg total) by mouth 2 (two) times a day. 180 tablet 3 01/07/2024 cetirizine (ZyrTEC) 10 mg tablet Take 10 mg by mouth daily. cholecalciferol, vitamin D3, 25 mcg (1,000 Unit) tablet Take by mouth daily. 10,000 IU diphenhydrAMINE (BENADRYL) 50 mg capsule Take 50 mg by mouth every 6 (six) hours as needed. At night esomeprazole (NexIUM) [address] capsule Take 1 capsule (40 mg total) by mouth every morning before breakfast. 90 capsule 3 08/21/2023 gabapentin (Neurontin) 400 mg capsule Take 1 capsule (400 mg total) by mouth 3 (three) times a day as needed (sleep). 270 capsule 3 01/07/2024 losartan (Cozaar) 100 mg tablet Take 1 tablet (100 mg total) by mouth daily. 90 tablet 3 01/07/2024 magnesium 200 mg tablet Take 1,600 mg by mouth every morning before breakfast. melatonin 5 mg tablet Take 10 mg by mouth. metoprolol succinate (Toprol XL) 25 mg 24 hr tablet Take 1 tablet (25 mg total) by mouth daily. Do not crush or chew. 90 tablet 3 06/07/2024 multivitamin capsule Take 1 capsule by mouth daily. ondansetron ODT (ZOFRAN-ODT) 4 mg disintegrating tablet Dissolve 1 tablet (4 mg total) in the mouth every 8 (eight) hours as needed for nausea or vomiting. 4 tablet 09/02/2023 rOPINIRole (REQUIP) 2 mg tablet take 1 tablet by mouth at bedtime 90 tablet 3 07/27/2023 sucralfate (Carafate) 1 gram tablet TAKE 1 TABLET BY MOUTH TWICE DAILY BEFORE BREAKFAST AND BEFORE SUPPER 180 tablet 3 11/23/2023 zolpidem (Ambien) 5 mg tablet Take 1 tablet (5 mg total) by mouth at bedtime as needed for sleep. 30 tablet 06/07/2024 5 documented as of this encounter Plan of Treatment Not on file documented as of this encounter Procedures Procedure Name Priority Date/Time Associated Diagnosis Comments BASIC METABOLIC PANEL, S/P Routine 06/07/2024 3:50 PM FINISH REPAIR WORKER Hypertension Essential Primary documented in this encounter Results * (ABNORMAL) Basic Metabolic Panel (06/07/2024 3:50 PM FINISH REPAIR WORKER) Potassium, P 4.2 3.6 - 5.2 mmol/L 06/07/2024 6:49 PM FINISH REPAIR WORKER OWAT Sodium, P 139 135 - 145 mmol/L 06/07/2024 6:49 PM FINISH REPAIR WORKER OWAT Chloride, P 104 98 - 107 mmol/L 06/07/2024 6:49 PM FINISH REPAIR WORKER OWAT Bicarbonate, P 19(L) 22 - 29 mmol/L 06/07/2024 6:49 PM FINISH REPAIR WORKER OWAT Anion Gap, P 16(H) 7 - 15 06/07/2024 6:49 PM FINISH REPAIR WORKER OWAT BUN (Blood Urea Nitrogen), P 8 6 - 21 mg/dL 06/07/2024 6:49 PM FINISH REPAIR WORKER OWAT Creatinine 0.62 0.59 - 1.04 mg/dL 06/07/2024 6:49 PM FINISH REPAIR WORKER OWAT Estimated GFR (eGFR) >90 >=60 mL/min/BSA 06/07/2024 6:49 PM FINISH REPAIR WORKER OWAT Comment: Estimated GFR calculated using the 2020 CKD_EPI creatinine equation. Calcium, Total, P 10.2(H) 8.6 - 10.0 mg/dL 06/07/2024 6:49 PM FINISH REPAIR WORKER OWAT Glucose, P 75 70 - 140 mg/dL 06/07/2024 6:49 PM FINISH REPAIR WORKER OWAT Blood (Blood, Venous) 06/07/2024 3:50 PM FINISH REPAIR WORKER 06/07/2024 5:50 PM FINISH REPAIR WORKER us Christina Ko M.D. LAB BLOOD ADD-ON Final Resul t [facility] [address] [place] [address], [facility] OWAT [facility] [place] [address] [place] [address] documented in this encounter Visit Diagnoses Diagnosis Hypertension Essential Primary documented in this encounter Care Teams External Grinder Tender Relationship Specialty Start Date End Date Christina Ko M.D. [address] [place] [phone] PCP - General Family Medicine 08/15/22 documented as of this encounter
--- OUTSIDE RECORDS SUMMARY | 2024-06-27 06:37 | XMS_ITS | Encounter Summary ---
Author Organization [facility] Address [address] [place] [address] Care Team Providers Care Commercial Credit Portfolio Manager Name Role Phone No Ref-Primary, Physician Primary Care Provider Venu Mcclelland MD Unavailable [phone] Ramsey Mahoney MD Unavailable [phone] Barron Chase DO Unavailable [phone] Christina Ko MD Primary Care Provider [phone] Encounter Details Date Type Department Care Team (Late st Contact Info) Description 09/01/[address] [facility] [address] [place] [address] Erma Waggoner RN Social History Tobacco Use Types Packs/Day Years [...] often do you attend chur ch or anabaptist services? 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 Gender Identity Not on file Sexual Orientation Not on file documented as of this encounter Plan of Treatment Not on file documented as of this encounter Visit Diagnoses Not on filedocumented in this encounter Care Teams Commercial Credit Portfolio Manager Relationship Specialty Start Date End Date No Ref-Primary, Physician PCP - General 05/04/23 12/11/23 Christina Ko MD [address] [place] [phone] PCP - General 12/12/23 Venu Mcclelland MD [address] [address] Assigned OBGYN Provider 07/28/23 Ramsey Mahoney MD [address] [place] [address] Physician Neurology 08/04/23 [place] [address] [place] [address] Assigned PCP 08/27/23 documented as of this encounter
--- OUTSIDE RECORDS SUMMARY | 2024-06-27 06:37 | XMS_ITS | Patient Health Record ---
Author Organization [facility] Address [address] [facility] [address] [place] [address] Care Team Providers Care Fish Housekeeper Name Role Phone Lucia Kamila Primary Care Provider Allergies Allergen (clinical drug ingredient) Drug/Non Drug Allergy documented on EMR Reaction Allergy Type Onset Date Status promethazine Phenergan Unknown Drug Allergy Acti ve Reason For Referral No Information Medications Medication SIG (Take, Route, Frequency, Duration) Notes Start Date End Date Status rOPINIRole HCl 2 MG 1 tablet 1 to 3 hour s before bedtime Orally Once a day for 90 days Active valACYclovir HCl 1 GM 1 tablet Orally On ce a day for 10 day(s) PRN Active PriLOSEC 40 MG 1 capsule 30 minutes before morning meal Orally Once a day for 90 days Active Gabapentin 100 MG 1 capsule Orally Twi ce a day for 90 days Active Gabapentin 400 MG 1 capsule Orally Twi ce a day Active Losartan Potassium 100 MG 1 tablet Orall y Once a day for 30 days Active Norvasc 5 MG 1 tablet Orally Once a day for 30 day(s) Active Vitamin B12 1000 MCG 1 tablet Orally Once a day Active Social History Tobacco Use: Social History Observation Description Date Details (start date - stop date) Unknown Tobacco Use/Smoking Question Answer Notes Are you a Uses tobacco in other forms Problems Problem Type SNOMED Code ICD Code Onset Dates Problem Status W/U Status Risk Notes Problem 31909887 Restless leg (G25.81) Active confirmed Problem [id number] Neuropathy (G62.9) Active confirmed Plan Of Treatment Pending Test Test Name Order Date Home Sleep Study 08/07/2021 Insurance Providers Payer Name Payer Address Payer Phone Subscriber Number Group Number Insured Name Patient Relationship to Insured Coverage Start Date Coverage End Date [facility] [address] [address] [place] [address] [id number] Tamiko Santiago Self - patient is the insured Medical (General) History Medical History History ICD Code Anxiety HTN PTSD Depression Guillain barre syndrome Surgical History Surgery Date(Month/Year) Hospitalization History Reason Date(Month/Year) Guillain [place] Syndrome 2015 [place] toxicity 2020
--- OUTSIDE RECORDS SUMMARY | 2024-06-27 06:37 | XMS_ITS | Encounter Summary ---
Author Organization [facility] Address [address] [place] [address] Care Team Providers Care Dry Molder Name Role Phone No Ref-Primary, Physician Primary Care Provider Venu Mcclleland MD Unavailable [phone] Ramsey Mahoney MD Unavailable [phone] Barron Chase DO Unavailable [phone] Christina Ko MD Primary Care Provider [phone] Encounter Details Date Type Department Care Team (Late st Contact Info) Description 08/17/2023 [facility] Medical Advice [address] [address] [place] [id number] [place] [address] Social History Tobacco Use Types Packs/Day Years [...] often do you attend chur ch or zoroastrianism services? 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 Gender Identity Not on file Sexual Orientation Not on file documented as of this encounter Plan of Treatment Not on file documented as of this encounter Visit Diagnoses Not on filedocumented in this encounter Care Teams Dry Molder Relationship Specialty Start Date End Date No Ref-Primary, Physician PCP - General 05/04/23 12/11/23 Christina Ko MD [address] [place] [phone] PCP - General 12/12/23 Venu Mcclelland MD [address] [id number] Assigned OBGYN Provider 07/28/23 Ramsey Mahoney MD [address] [place], [place] [address] Physician Neurology 08/04/23 [place] [address] [place] [address] Assigned PCP 08/27/23 documented as of this encounter
--- OUTSIDE RECORDS SUMMARY | 2024-06-27 06:37 | XMS_ITS | Clinical Summary ---
Author Organization [facility] Address [address] [place] [address] Care Team Providers Care Knit Goods Mender Name Role Phone Christina Ko M.D. Primary Care Provider Source Comments Patient records contain information from all sites at [facility]. For routine questions regarding patient records, call [phone] during business hours, M-F 8:00 AM - 5:00 PM Central Time. Record requests for emergency care only can be directed to [phone] at any time.[facility] Allergies Active Allergy Reactions Criticality Noted Date Comments Adhesive Rash 01/15/2016 Erythromycin Myalgia 09/09/2023 Abdominal pain Promethazine Other (see comments) 08/29/2022 Patient stated she had uncontrollable movements Medications cetirizine (ZyrTEC) 10 mg tablet Take 10 mg by mouth daily. Active melatonin 5 mg tablet Take 10 mg by mouth. Active diphenhydrAMINE (BENADRYL) 50 mg capsule Take 50 mg by mouth every 6 (six) hours as needed. At night Active cholecalciferol, vitamin D3, 25 mcg (1,000 Unit) tablet Take by mouth daily. 10,000 IU Active biotin 1 mg tablet Take by mouth daily. 10,000 Active multivitamin capsule Take 1 capsule by mouth daily. Active magnesium 200 mg tablet Take 1,600 mg by mouth every morning before breakfast. Active rOPINIRole (REQUIP) 2 mg tablet take 1 tablet by mouth at bedtime 90 tablet 3 07/27/19 24 Active albuterol 2.5 mg /3 mL nebulizer solution Inhale 2.5 mg every 6 (six) hours as needed. Active esomeprazole (NexIUM) [address] capsule Take 1 capsule (40 mg total) by mouth every morning before breakfast. 90 capsule 3 08/21/19 24 Active ondansetron ODT (ZOFRAN-ODT) 4 mg disintegrating tablet Dissolve 1 tablet (4 mg total) in the mouth every 8 (eight) hours as needed for nausea or vomiting. 4 tablet 09/02/19 24 Active sucralfate (Carafate) 1 gram tablet TAKE 1 TABLET BY MOUTH TWICE DAILY BEFORE BREAKFAST AND BEFORE SUPPER 180 tablet 3 11/23/19 24 Active losartan (Cozaar) 100 mg tablet Take 1 tablet (100 mg total) by mouth daily. 90 tablet 3 01/07/20 24 Active buPROPion (Wellbutrin SR) 150 mg 12 hr tablet Take 1 tablet (150 mg total) by mouth 2 (two) times a day. 180 tablet 3 01/07/20 24 Active gabapentin (Neurontin) 400 mg capsule Take 1 capsule (400 mg total) by mouth 3 (three) times a day as needed (sleep). 270 capsule 3 01/07/20 24 Active amLODIPine (Norvasc) 5 mg tablet Take 1 tablet (5 mg total) by mouth daily. 90 tablet 3 06/08/19 25 Active metoprolol succinate (Toprol XL) 25 mg 24 hr tablet Take 1 tablet (25 mg total) by mouth daily. Do not crush or chew. 90 tablet 3 06/08/19 25 Active zolpidem (Ambien) 10 mg tablet Take 1 tablet (10 mg total) by mouth at bedtime as needed for sleep. 30 tablet 1 06/17/19 25 Active UNABLE TO FIND Doxyalamine 50 mg at night 025 Discontin ued(Thera py completed ) vitamins A,C,R-ayhi-aqkcff (ICAPS AREDS) 14,320 Units-226 mg-200 Units per capsule Take 1 capsule by mouth daily. 025 Discontin ued(Thera py completed ) amLODIPine (Norvasc) 10 mg tablet Take 1 tablet (10 mg total) by mouth daily. 90 tablet 3 10/26/19 24 025 Discontin ued(Reord er) zolpidem (Ambien) 5 mg tablet Take 1 tablet (5 mg total) by mouth at bedtime as needed for sleep. 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 06/09/2024 Results Follow-Up Department of [facility], [facility], in [address] [phone] Petar Tenorio, L.P.NJosé Miguel Basic Metabolic Panel 06/07/2024 3:35 PM COPPER PLATE LITHOGRAPHER - 06/07/2024 11:59 PM COPPER PLATE LITHOGRAPHER Hospital Encounter Department of Laboratory Medicine in [address] [phone] Christina Ko M.D. Hypertension Essential Primary Discharge Disposition: Home or Self Care 06/07/2024 3:00 PM COPPER PLATE LITHOGRAPHER Office Visit Department of [facility], [facility], in [address] [phone] Christina Ko M.D. Hypertension Essential Primary (Primary Dx); Insomnia 05/17/2024 Clinical Communication Department of [facility], [facility], in [address] [phone] Richelle Adams R.N. Quality (HTN) 04/12/2024 Orders Only [facility] Christina Ko M.D. Monitoring For Therapeutic Drug Therapy from Last 3 Months Immunizations Immunization Administration Dates Next Due HepB Adult 08/18/2023(Deferred: Patient decision - patient states she received the series in [place]) MMR 07/08/2022 SARS-COV-2 (COVID-19) - MODERNA(Discontinued) 08/18/2023(Deferred: Patient decision) Td, (Adult) Unspecified 08/18/2023(Deferred: Pat ient decision) Tdap 08/18/2023 influenza vaccine quad (FLUZONE/FLUARIX) (6 months and older)(PF) 02/12/2023 Family History Medical History Relation Name Comments Crohn's disease Brother History of substance abuse Father Relation Name Status Comments Brother Father Mother Alive Social History Tobacco Use Types Packs/Day Years Used Date Smoking Tobacco: Former Cigarettes Smokeless Tobacco: Never Tobacco Cessation:Counseling Given: Not Answered [facility] Utilities Answer Date Recorded In the past 12 months has th e [employer], gas, oil, or water [employer] threatened to shut off services in your [...] your living situation today? I have a [facility] place to live 10/20/2023 Comments No Sex and Gender Information Value Date Recorded Sex Assigned at Female 10/30/2022 11:02 AM CDT Legal Sex Female 1:08 PM CDT Gender Identity Female 10/30/2022 11:02 AM CDT Sexual Orientation Straight 10/30/2022 11 :02 AM CDT Last Filed Vital Signs Vital Sign Reading Time Taken Comments Blood Pressure 121/85 06/20/2024 8:00 AM CDT Juan Diego e BP Pulse 69 06/07/2024 3:03 PM COPPER PLATE LITHOGRAPHER Temperature 36.7 C (98.1 F) 06/07/2024 2:51 PM COPPER PLATE LITHOGRAPHER Respiratory Rate 16 08/18/2023 3:55 PM CDT Oxygen Saturation - - Inhaled Oxygen Concentration - - Weight 91 kg (200 lb 9.9 oz) 06/07/2024 2:51 PM COPPER PLATE LITHOGRAPHER Height 170 cm (5' 6.93) 06/07/2024 2:51 PM COPPER PLATE LITHOGRAPHER Body Mass Index 31.49 06/07/2024 2:51 PM COPPER PLATE LITHOGRAPHER Plan of Treatment Health Maintenance Due Date Last Done Comments CT Colonography 1976 Cologuard 1976 FIT 1976 HIV Screening 1976 Hepatitis C Screening 1976 Tobacco Cessation counseling 1976 Hepatitis B Vaccines (1 of 3 - 19+ 3-dose series) 1995 COVID-19 Vaccine ( season) 2023 Influenza Vaccine (#1) 2024 02/12/2023 Depression Screening (Annual PHQ-2) 04/06/2024 Mammogram 12/15/2024 12/16/2023, 08/2022, 12/09/2022, Additional history exists Creatinine Level (Kidney Function Test) 06/07/2025 06/07/2024, 05/08/2023, 05/07/2023, Additional history exists Potassium Level 06/07/2025 06/07/2024, 05/2023, 05/07/2023, Additional history exists Sodium Level 06/07/2025 06/07/2024, 02/05/2023, 05/07/2023, Additional history exists Visit: Chronic Disease, age 18+ 06/07/2025 06/07/2024 Office Visit for Blood Pressure Check / Re-check 06/20/2025 06/20/2024 Cervical/Vaginal Cancer Screening 07/13/2026 07/14/2023 Fasting Glucose for Diabetes Screening 06/08/2027 06/07/2024, 05/08/2023, 05/07/2023, Additional history exists Lipid (Cholesterol) Screening 07/26/2028 07/27/2023, 10/30/2022 DTaP,Tdap,and Td Vaccines (2 - Td or Tdap) 08/17/2033 08/18/2023 Colonoscopy 09/08/2033 09/09/2023 Colorectal Cancer Screening 09/08/2033 IPV Vaccines Aged Out No longer eligi ble based on patient's age to complete this topic Pneumococcal vaccine (0-49 years) Aged Out No longer eligible based on patient's age to complete this topic Procedures Procedure Name Priority Date/Time Associated Diagnosis Comments BASIC METABOLIC PANEL, S/P Routine 06/07/2024 3:50 PM COPPER PLATE LITHOGRAPHER Hypertension Essential Primary BI BREAST SCREENING BILATERAL WITH TOMOSYNTHESIS RAD - Routine (most inpatients and all outpatients) 12/16/2023 1:40 PM CDT Screening Mammogram Breast Cancer LIPID PANEL, S Routine 10/30/2022 11:27 AM CDT Maintenance Health Adult from Last 3 Months or Most Recently Relevant to Health Maintenance Results * (ABNORMAL) Basic Metabolic Panel (06/07/2024 3:50 PM COPPER PLATE LITHOGRAPHER) Potassium, P 4.2 3.6 - 5.2 mmol/L 06/07/2024 6:49 PM COPPER PLATE LITHOGRAPHER OWAT Sodium, P 139 135 - 145 mmol/L 06/07/2024 6:49 PM COPPER PLATE LITHOGRAPHER OWAT Chloride, P 104 98 - 107 mmol/L 06/07/2024 6:49 PM COPPER PLATE LITHOGRAPHER OWAT Bicarbonate, P 19(L) 22 - 29 mmol/L 06/07/2024 6:49 PM COPPER PLATE LITHOGRAPHER OWAT Anion Gap, P 16(H) 7 - 15 06/07/2024 6:49 PM COPPER PLATE LITHOGRAPHER OWAT BUN (Blood Urea Nitrogen), P 8 6 - 21 mg/dL 06/07/2024 6:49 PM COPPER PLATE LITHOGRAPHER OWAT Creatinine 0.62 0.59 - 1.04 mg/dL 06/07/2024 6:49 PM COPPER PLATE LITHOGRAPHER OWAT Estimated GFR (eGFR) >90 >=60 mL/min/BSA 06/07/2024 6:49 PM COPPER PLATE LITHOGRAPHER OWAT Comment: Estimated GFR calculated using the 2020 CKD_EPI creatinine equation. Calcium, Total, P 10.2(H) 8.6 - 10.0 mg/dL 06/07/2024 6:49 PM COPPER PLATE LITHOGRAPHER OWAT Glucose, P 75 70 - 140 mg/dL 06/07/2024 6:49 PM COPPER PLATE LITHOGRAPHER OWAT Blood (Blood, Venous) 06/07/2024 3:50 PM COPPER PLATE LITHOGRAPHER 06/07/2024 5:50 PM COPPER PLATE LITHOGRAPHER us Christina Ko M.D. LAB BLOOD ADD-ON Final Resul t [facility] [address], [place] [address], [facility] OWAT [facility] in [place] [address] [place] [address] * BI Breast Screening Bilateral with Tomosynthesis (12/16/2023 1:40 PM CDT) Anatomical Region Laterality Modality Breast, Breast Imaging RST L OS, Breast Imaging ARZ LOS, Breast Imaging FLA LOS Bilateral Mammography Impressions 12/16/2023 2:11 PM CDT Negative. RECOMMENDATION: Annual Screening Mammogram ASSESSMENT: BI-RADS: 1: Negative. Narrative 12/16/2023 2:11 PM CDT EXAM: BI BREAST SCREENING BILATERAL WITH TOMOSYNTHESIS Current study was evaluated with a Computer Aided Detection (CAD) system. INDICATION: Screening mammogram. COMPARISON: Prior exam(s) were available and reviewed for comparison. DENSITY: b. There are scattered areas of fibroglandular density. FINDINGS: No findings of malignancy. No significant change since prior exam. Procedure Note Eddi Crews M.D. - 12/16/2023 EXAM: BI BREAST SCREENING BILATERAL WITH TOMOSYNTHESIS Current study was evaluated with a Computer Aided Detection (CAD) system. INDICATION: Screening mammogram. COMPARISON: Prior exam(s) were available and reviewed for comparison. DENSITY: b. There are scattered areas of fibroglandular density. FINDINGS: No findings of malignancy. No significant change since priorexam. IMPRESSION: Negative. RECOMMENDATION: Annual Screening Mammogram ASSESSMENT: BI-RADS: 1: Negative. us Christina Ko M.D. IM BI PROCEDURES Final Resu lt * (ABNORMAL) Lipid Panel (10/30/2022 11:27 AM CDT) Triglycerides 91 mg/dL 10/30/2022 1:44 PM CDT OWAT Comment: ----REFERENCE VALUE---- Normal: <150 mg/dL Borderline High: 150-199 mg/dL High: 200-499 mg/dL Very High: > or =500 mg/dL Cholesterol, Total 172 mg/dL 2022 1:44 PM CDT OWAT Comment: ----REFERENCE VALUE---- Desirable: < 200 mg/dL Borderline High: 200 - 239 mg/dL High: > or = 240 mg/dL Cholesterol, LDL, Calculated 108 mg/dL 10/30/2022 1:44 PM CDT OWAT Comment: ----REFERENCE VALUE---- Desirable: <100 mg/dL Above Desirable: 100-129 mg/dL Borderline High: 130-159 mg/dL High: 160-189 mg/dL Very High: >=190 mg/dL ----ADDITIONAL INFORMATION---- LDL cholesterol calculated using the Ferreira/NIH equation. Cholesterol, HDL 47(L) >=50 mg/dL 10/31/19 1:44 PM CDT OWAT Cholesterol, Non-HDL, Calculated 125 mg/dL 10/30/2022 1:44 PM CDT OWAT Comment: ----REFERENCE VALUE---- Desirable: <130 mg/dL Above Desirable: 130-159 mg/dL Borderline High: 160-189 mg/dL High: 190-219 mg/dL Very High: > or =220 mg/dL Fasting (8 HR or more) Yes 10/30/2022 1:22 PM CDT OWAT Blood (Blood, Venous) 10/30/2022 11:27 AM CDT 10/30/2022 1:22 PM CDT us Christina Ko M.D. LAB BLOOD ADD-ON Final Resul t [facility] [address] [place] [address], [place] OWAT [facility] [place] [address] [place] [address] from Last 3 Months or Most Recently Relevant to Health Maintenance Insurance [facility] Care Teams Knit Goods Mender Relationship Specialty Start Date End Date Christina Ko M.D. [address] [place] [address] [place] [phone] PCP - General Family Medicine 08/15/22
--- OUTSIDE RECORDS SUMMARY | 2024-06-27 06:37 | XMS_ITS | Encounter Summary ---
Author Organization [facility] Address [address] [place] [address] Care Team Providers Care Business Systems Architect Name Role Phone Christina Ko M.D. Primary Care Provider Encounter Details Date Type Department Care Team (Late st Contact Info) Description 06/09/2024 Results Follow-Up Department of Family Medicine, [facility], in [place], [place] [address] [facility] [place] [phone] Petar Tenorio, L.P.N. [address], [place] [address] Basic Metabolic Panel Social History Tobacco Use Types Packs/Day Years Used Date Smoking Tobacco: Former Cigarettes Smokeless Tobacco: Never [facility] Utilities Answer Date Recorded In the [...] your living situation today? I have a [facility] place to live 10/20/2023 Comments No [...] on filedocumented in this encounter Care Teams Business Systems Architect Relationship Specialty Start Date End Date Christina Ko M.D. [address] [place] [phone] PCP - General Family Medicine 08/15/22 documented as of this encounter
--- OUTSIDE RECORDS SUMMARY | 2024-06-27 06:37 | XMS_ITS | Encounter Summary ---
Author Organization [facility] Address [address] [place] [address] Care Team Providers Care Flight Instructor Name Role Phone No Ref-Primary, Physician Primary Care Provider Venu Mcclelland MD Unavailable [phone] Ramsey Mahoney MD Unavailable [phone] Barron Chase DO Unavailable [phone] Christina Ko MD Primary Care Provider [phone] Encounter Details Date Type Department Care Team (Late st Contact Info) Description 08/27/2023 MyC Medical Advice [facility] [address] [place] [address] Erma Waggoner RN Social History [...] often do you attend chur ch or mosque services? 1 to 4 times per year 07/23/2023 Do you belong to any clubs o r organizations such as zoroastrian groups, unions, fraternal or athletic groups, or [...] Answer Date Recorded PHQ-2 Score 1 07/27/2023 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 Gender Identity Not on file Sexual Orientation Not on file documented as of this encounter Plan of Treatment Not on file documented as of this encounter Visit Diagnoses Not on filedocumented in this encounter Care Teams Flight Instructor Relationship Specialty Start Date End Date No Ref-Primary, Physician PCP - General 05/04/23 12/11/23 Christina Ko MD [address] [place] [phone] PCP - General 12/12/23 Venu Mcclelland MD [address] [address] Assigned OBGYN Provider 07/28/23 Ramsey Mahoney MD [address] [place] [address] Physician Neurology 08/04/23 [place] [address] [place] [address] Assigned PCP 08/27/23 documented as of this encounter
--- OUTSIDE RECORDS SUMMARY | 2024-06-27 06:37 | XMS_ITS | Encounter Summary ---
Author Organization [facility] Address [address] [place] [address] Care Team Providers Care Submersible Pilot Name Role Phone Christina Ko M.D. Primary Care Provider Reason for Visit * Reason Comments Insomnia And concern with blo od pressure * Appointment Request (Routine) - Closed Specialty Diagnoses / Procedures Referred By Mikael phillips Referred To Contact Family Medicine Referral ID Status Reason Start Date Expiration Date Visits Re quested Visits Authorized [id number] Closed 06/01/2024 09/01/2025 1 1 Encounter Details Date Type Department Care Team (Late st Contact Info) Description 06/07/2024 3:00 PM LENS CLEANER Office Visit Department of Family Medicine, [facility], in [place], [place] [address] [place] [phone] Christina Ko M.D. [address] [place] [phone] Hypertension Essential Primary (Primary Dx); Insomnia Social History Tobacco Use Types Packs/Day Years Used Date Smoking Tobacco: Former Cigarettes Smokeless Tobacco: Never Tobacco Cessation:Counseling Given: Not Answered [facility] Utilities Answer Date Recorded In the past 12 months has e Hab Housing, gas, oil, or water [facility] threatened to shut off services in your [...] money to buy more. Never true 10/20/19 Within the past 12 months, t he [...] your living situation today? I have a [facility] place to live 10/20/2023 Comments No Sex and Gender Information Value Date Recorded Sex Assigned at Female 10/30/2022 11:02 AM CDT Legal Sex Female 1:08 PM CDT Gender Identity Female 10/30/2022 11:02 AM CDT Sexual Orientation Straight 10/30/2022 11 :02 AM CDT documented as of this encounter Last Filed Vital Signs Vital Sign Reading Time Taken Comments Blood Pressure 163/119 06/07/2024 3:03 PM LENS CLEANER Pulse 69 06/07/2024 3:03 PM LENS CLEANER Temperature 36.7 C (98.1 F) 06/07/2024 2:51 PM LENS CLEANER Respiratory Rate - - Oxygen Saturation - - Inhaled Oxygen Concentration - - Weight 91 kg (200 lb 9.9 oz) 06/07/2024 2:51 PM LENS CLEANER Height 170 cm (5' 6.93) 06/07/2024 2:51 PM LENS CLEANER Body Mass Index 31.49 06/07/2024 2:51 PM LENS CLEANER documented in this encounter Progress Notes * Christina Ko M.D. - 06/07/2024 3:00 PM CST Progress Note Patient is 47 years old female with past medical history significant for hyperlipidemia, insomnia, anxiety, depression, GERD, [place], neuropathy, restless leg syndrome, obesity who presented today to the clinic for evaluation of insomnia and hypertension. 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) - Finishes shift at 7AM, attempts sleep by 8:30-9AM after walking dog - Sleep hygiene measures: stops caffeine after 3AM, uses blackout curtains, eye mask with Bluetoothspeakers, fan - Previous sleep medications: - Trazodone: caused dizziness even when lying down - Quetiapine: initially helpful but became less effective - Melatonin: causes headaches if taken in higher doses - Zaleplon: worked temporarily then lost effectiveness - Clonazepam: taken for 25 years until 05/2000 when she had overdosed on - Zolpidem: tried once during hospitalisation with good effect - Doxylamine: discontinued due to racing heart at work (heart rate 110-120) - Recent persistent headache for several days - Experiencing hot flushes - Reports exhaustion affecting work performance - Sleep pattern highly irregular: sometimes sleeps 2-3 hours, other times normal duration - On days off, sleeps entire day and night to catch up - No shortness of breath - No double vision, loss of vision, numbness or tingling - No chest pain - Taking gabapentin consistently for pain management: 400-1200mg at bedtime only - Current medications: bupropion, losartan 100mg, ropinirole, amlodipine 10mg (taking half dose Allergies Allergen Reactions Adhesive Rash Erythromycin Myalgia Abdominal pain Promethazine Other (see comments) Patient stated she had uncontrollable movements Current Medications[1] Medical History[2] Social History[3] REVIEW OF SYSTEMS Vitals: 06/07/24 1451 06/07/24 1503 BP: (!) 168/114 (!) 163/119 BP Location: Left arm Left arm Patient Position: Sitting Sitting Cuff Size: Regular Regular Pulse: 74 69 Temp: 36.7 ??C Weight: 91 kg Height: 170 cm Constitutional Appearance: She is well-developed. HENT Head: Normocephalic and atraumatic. Right Ear: External ear normal. Left Ear: External ear normal. Nose: Nose normal. Eyes Conjunctiva/sclera: Conjunctivae normal. Pupils: Pupils are equal, round, and reactive to light. Cardiovascular Rate and Rhythm: Normal rate and regular rhythm. Heart sounds: Normal heart sounds. Pulmonary Effort: Pulmonary effort is normal. No respiratory distress. Breath sounds: Normal breath sounds. Abdominal General: Bowel sounds are normal. There is no distension. Palpations: Abdomen is soft. There is no mass. Tenderness: There is no abdominal tenderness. There is no guarding. Musculoskeletal General: Normal range of motion. Cervical back: Normal range of motion and neck supple. Skin General: Skin is warm and dry. Neurological Mental Status: She is alert and oriented to person, place, and time. Deep Tendon Reflexes: Reflexes are normal and symmetric. Psychiatric Behavior: Behavior normal. Tamiko was seen today for insomnia. Diagnoses and all orders for this visit: Hypertension Essential Primary - Basic Metabolic Panel; Future - Commence metoprolol 25mg - Continue losartan 100mg - Reduce amlodipine to 5mg - Daily blood pressure monitoring requested with portal updates - Blood tests ordered: BMP - Advised to seek immediate medical attention if experiencing numbness, tingling, chest pain, shortness of breath, or severe headache Insomnia - Commence zolpidem 5mg - Counselled regarding potential side effects - Continue current sleep hygiene measures Other orders - zolpidem (Ambien) 5 mg tablet; Take 1 tablet (5 mg total) by mouth at bedtime as needed for sleep. - amLODIPine (Norvasc) 5 mg tablet; Take 1 tablet (5 mg total) by mouth daily. - metoprolol succinate (Toprol XL) 25 mg 24 hr tablet; Take 1 tablet (25 mg total) by mouth daily. Do not crush or chew. [1] Current Outpatient Medications: albuterol 2.5 mg /3 mL nebulizer solution, Inhale 2.5 mg every 6 (six) hours as needed., Disp: , Rfl: amLODIPine (Norvasc) 5 mg tablet, Take 1 tablet (5 mg total) by mouth daily., Disp: 90 tablet, Rfl:3 biotin 1 mg tablet, Take by mouth daily. 10,000, Disp: , Rfl: buPROPion (Wellbutrin SR) 150 mg 12 hr tablet, Take 1 tablet (150 mg total) by mouth 2 (two) times a day., Disp: 180 tablet, Rfl: 3 cetirizine (ZyrTEC) 10 mg tablet, Take 10 mg by mouth daily., Disp: , Rfl: cholecalciferol, vitamin D3, 25 mcg (1,000 Unit) tablet, Take by mouth daily. 10,000 IU, Disp: , Rfl: diphenhydrAMINE (BENADRYL) 50 mg capsule, Take 50 mg by mouth every 6 (six) hours as needed. At night, Disp: , Rfl: esomeprazole (NexIUM) [address] capsule, Take 1 capsule (40 mg total) by mouth every morning before breakfast., Disp: 90 capsule, Rfl: 3 gabapentin (Neurontin) 400 mg capsule, Take 1 capsule (400 mg total) by mouth 3 (three) times a dayas needed (sleep)., Disp: 270 capsule, Rfl: 3 losartan (Cozaar) 100 mg tablet, Take 1 tablet (100 mg total) by mouth daily., Disp: 90 tablet, Rfl: 3 magnesium 200 mg tablet, Take 1,600 mg by mouth every morning before breakfast., Disp: , Rfl: melatonin 5 mg tablet, Take 10 mg by mouth., Disp: , Rfl: multivitamin capsule, Take 1 capsule by mouth daily., Disp: , Rfl: rOPINIRole (REQUIP) 2 mg tablet, take 1 tablet by mouth at bedtime, Disp: 90 tablet, Rfl: 3 sucralfate (Carafate) 1 gram tablet, TAKE 1 TABLET BY MOUTH TWICE DAILY BEFORE BREAKFAST AND BEFORESUPPER, Disp: 180 tablet, Rfl: 3 metoprolol succinate (Toprol XL) 25 mg 24 hr tablet, Take 1 tablet (25 mg total) by mouth daily. 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 (HCC) Hypertension Essential Primary Insomnia Neuropathy Restless Leg Syndrome [3] Social History Tobacco Use Smoking status: Former Types: Cigarettes Smokeless tobacco: Never Vaping Use Vaping status: current every day use CLEANER documented in this encounter Plan of Treatment Not on file documented as of this encounter Results * (ABNORMAL) Basic Metabolic Panel (06/07/2024 3:50 PM LENS CLEANER) Pathologist [facility] Potassium, P 4.2 3.6 - 5.2 mmol/L 06/07/2024 6:49 PM LENS CLEANER OWAT Sodium, P 139 135 - 145 mmol/L 06/07/2024 6:49 PM LENS CLEANER OWAT Chloride, P 104 98 - 107 mmol/L 06/07/2024 6:49 PM LENS CLEANER OWAT Bicarbonate, P 19(L) 22 - 29 mmol/L 06/07/2024 6:49 PM LENS CLEANER OWAT Anion Gap, P 16(H) 7 - 15 06/07/2024 6:49 PM LENS CLEANER OWAT BUN (Blood Urea Nitrogen), P 8 6 - 21 mg/dL 06/07/2024 6:49 PM LENS CLEANER OWAT Creatinine 0.62 0.59 - 1.04 mg/dL 06/07/2024 6:49 PM LENS CLEANER OWAT Estimated GFR (eGFR) >90 >=60 mL/min/BSA 06/07/2024 6:49 PM LENS CLEANER OWAT Comment: Estimated GFR calculated using the 2020 CKD_EPI creatinine equation. Calcium, Total, P 10.2(H) 8.6 - 10.0 mg/dL 06/07/2024 6:49 PM LENS CLEANER OWAT Glucose, P 75 70 - 140 mg/dL 06/07/2024 6:49 PM LENS CLEANER OWAT Blood (Blood, Venous) 06/07/2024 3:50 PM LENS CLEANER 06/07/2024 5:50 PM LENS CLEANER us Christina Ko M.D. LAB BLOOD ADD-ON Final Resul t [facility] [address] [place] [address], [facility] [place] [address] [place] [address] documented in this encounter Visit Diagnoses Diagnosis Hypertension Essential Primary- Primary Insomnia documented in this encounter Care Teams Submersible Pilot Relationship Specialty Start Date End Date Christina Ko M.D. [address] [place] [phone] PCP - General Family Medicine 08/15/22 documented as of this encounter
--- OUTSIDE RECORDS SUMMARY | 2024-06-27 06:37 | XMS_ITS | Encounter Summary ---
Author Organization [facility] Address [address] [place] [address] Care Team Providers Care Welding Specialist Name Role Phone Venu Mcclelland MD Unavailable [phone] Ramsey Mahoney MD Unavailable [phone] Barron Chase DO Unavailable [phone] Christina Ko MD Primary Care Provider [phone] Encounter Details Date Type Department Care Team (Late st Contact Info) Description 01/15/2024 MyC Medical Advice [facility] [id number] [place] [phone] [place] [id number] [place] [address] Social History Tobacco Use Types Packs/Day Years Used Date Smoking Tobacco: Former Cigarettes 1 25 Smokeless Tobacco: Never Comments:vape Alcohol Use Standard Drinks/Week Comments Not [...] often do you attend chur ch or bahai services? 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 Gender Identity Not on file Sexual Orientation Not on file documented as of this encounter Plan of Treatment Not on file documented as of this encounter Visit Diagnoses Not on filedocumented in this encounter Care Teams Welding Specialist Relationship Specialty Start Date End Date Christina Ko MD [address] [place] [phone] PCP - General 12/12/23 Venu Mcclelland MD [address] [address] Assigned OBGYN Provider 07/28/23 Ramsey Mahoney MD [address] [place] [address] Physician Neurology 08/04/23 [place] [address] [place] [address] Assigned PCP 08/27/23 documented as of this encounter
--- OUTSIDE RECORDS SUMMARY | 2024-06-27 06:37 | XMS_ITS | Clinical Summary ---
Author Organization [email or web address] Address [address] [place] [address] Care Team Providers Care Grain Shipper Name Role Phone Pcp, No Primary Care Provider Unavailabl e Allergies Active Allergy Reactions Criticality Noted Date Comments Adhesive Rash 01/15/2016 Erythromycin Myalgia 09/09/2023 Abdominal pain Promethazine Muscle Weakness,Othe r - Describe In Comment Field High 08/29/2022 Uncontrollable movements Uncontrollable movements Patient stated she had uncontrollable movements Medications amLODIPine (NORVASC) 5 mg tablet Take 5 mg by mouth once daily. 08/29/2022 Active Biotin 1 mg tablet Take 1 mg by mouth once daily. Active buPROPion (WELLBUTRIN SR) 150 mg Sustained-Relea se tablet Take 150 mg by mouth two times daily. 08/29/2022 Active cetirizine (ZYRTEC) 10 mg tablet Take 10 mg by mouth once daily. Active cholecalciferol (VITAMIN D3) 1,000 unit tablet Take 1,000 units by mouth once daily. Active diphenhydrAMINE (BENADRYL) 50 mg capsule Take 50 mg by mouth every 6 hours if needed. Active esomeprazole (NEXIUM) 40 mg capsule Take 40 mg by mouth once daily before a meal. 08/29/2022 Active gabapentin (NEURONTIN) 400 mg capsule Take 400 mg by mouth 3 times daily if needed. 08/29/2022 Active losartan (COZAAR) 100 mg tablet Take 100 mg by mouth once daily. 08/29/2022 Active Magnesium 200 mg tab Take 1,600 mg by mouth once daily. Active melatonin 5 mg tab tablet Take 10 mg by mouth at bedtime. Active multivitamin capsule Take 1 Capsule by mouth once daily. Active rOPINIRole (REQUIP) 2 mg tablet Take 2 mg by mouth at bedtime. 08/29/2022 Active Vit A,C,E-Zinc-Nyla er 4,296 mcg-226 mg-90 mg cap Take 1 Capsule by mouth once daily. Active benzonatate (TESSALON) 200 mg capsuleIndicati ons:Viral bronchitis Take 1 Capsule (200 mg) by mouth 3 times daily if needed for Cough. 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/2022 Insomnia 08/30/2022 Primary hypertension 08/30/2022 Restless leg syndrome 08/30/2022 Obesity 11/24/2020 Suicidal ideation 11/24/2020 Tobacco abuse counseling 11/24/2020 Neuropathy 01/16/2016 Weakness of both lower extremities 01/16/2016 Resolved Problems Problem Noted Date Diagnosed Date Resolved Date Trainer toxicity 09/14/2020 01/03/2024 Social History Tobacco Use Types Packs/Day Years Used Date Smoking Tobacco: Former Cigarettes 1 29 1 993 - 2021 Smokeless Tobacco: Never Tobacco Cessation:Counseling Given: Not Answered Alcohol Use Standard Drinks/Week Comments Not Currently 0 (1 standard drink = 0.6 oz pur e alcohol) Social Connections Answer Date Recorded Do you often feel lonely or isolated from those around you? 0 01/03/2024 Financial Resource Strain Answer Date R ecorded Difficulty of Paying Living Expenses 3 05/07/2024 Difficulty of Paying Living Expenses Not on file 05/07/2024 Food Insecurity Answer Date Recorded Do you worry your food will run out before you are able to buy more? 1 01/03/2024 Transportation Needs Answer Date Record ed Does lack of transportation keep you from medica l appointments? 1 01/03/2024 Does lack of transportation keep you from work, meetings or getting things that you need? 1 01/03/2024 Housing Stability Answer Date Recorded What is your housing situation today? 1 01/03/2024 Utilities Answer Date Recorded Do you have trouble paying f or utilities (for example, heat, electricity, water, phone)? 1 01/03/2024 Comments No Sex and Gender Information Value Date Recorded Sex Assigned at Not on file Legal Sex Female 3:40 PM CDT Gender Identity Not on file Sexual Orientation Not on file Obstetrics History Last Filed Vital Signs Vital Sign Reading Time Taken Comments Blood Pressure 133/77 01/03/2024 9:26 AM CDT Pulse 82 01/03/2024 9:26 AM CDT Temperature 36.4 C (97.5 F) 01/03/2024 9:26 AM CDT Respiratory Rate 13 01/03/2024 9:26 AM CDT Oxygen Saturation 97% 01/03/2024 9:26 AM CDT Inhaled Oxygen Concentration - - Weight 90.9 kg (200 lb 6.4 oz) 01/03/2024 9:26 A M CDT Height 173 cm (5' 8.11) 10/14/2022 10:40 AM CDT Body Mass Index 30.37 10/14/2022 10:40 AM CDT Plan of Treatment Health Maintenance Due Date Last Done Comments Tdap 1987 Depression screening for age 12+ 1988 HIV for age 15-65 1991 BMI (ht and wt on same day) for age 18+ 1994 Hepatitis C screening for ag e 18-79 1994 Tetanus booster 1996 Pap test for age 21-65 1997 Colonoscopy through age 75 2021 Lipids for age 45-75 2021 Mammogram for age 45-75 2021 COVID-19 vaccine series ( - 2023- season) 2023 Influenza Vaccine (#1) 2023 Pneumococcal series for age 6-49 Aged Out No longer eligible based on patient's age to complete this topic Insurance [facility] [employer] Care Teams Grain Shipper Relationship Specialty Start Date End Date Pcp, No . PCP - General 10/11/22
--- OUTSIDE RECORDS SUMMARY | 2024-06-27 06:37 | XMS_ITS | Encounter Summary ---
Author Organization [facility] Address [address] [place] [address] Care Team Providers Care Food Production Machine Operator Name Role Phone No Ref-Primary, Physician Primary Care Provider Venu Mcclelland MD Unavailable [phone] Ramsey Mahoney MD Unavailable [phone] Barron Chase DO Unavailable [phone] Christina Ko MD Primary Care Provider [phone] Encounter Details Date Type Department Care Team (Late st Contact Info) Description 08/15/2023 MyC Medical Advice [address] [phone] [place] [id number] [place] [address] Social History Tobacco Use Types Packs/Day [...] often do you attend chur ch or oriental orthodox services? 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 From previous records, from patient's previous clinic Patient reports taking 400-1600 mg at bedtime PRN sleep. Directions from [employer] = TAKE 1 CAPSULE BY MOUTH THREE TIMES DAILY NEEDED FOR SLEEP. Patient has previous request already on file in chart. documented in this encounter Plan of Treatment Not on file documented as of this encounter Visit Diagnoses Not on filedocumented in this encounter Care Teams Food Production Machine Operator Relationship Specialty Start Date End Date No Ref-Primary, Physician PCP - General 05/04/23 12/11/23 Christina Ko MD [address] [place] [phone] PCP - General 12/12/23 Venu Mcclelland MD [facility] [address] [address] Assigned OBGYN Provider 07/28/23 Ramsey Mahoney MD [address] [place] [address] Physician Neurology 08/04/23 [place] [address] [address] [place], [place] [id number] Assigned PCP 08/27/23 documented as of this encounter
[2024-06-27 06:39] VITALS: BP 132/105; PULSE 86; RESP 16; TEMP 36.3; O2SAT 100; BMI 31.0
--- NOTE | 2024-06-27 06:48 | ED.FALL ---
HPI - Fall General Time Seen by Provider: 06:48 Date Seen: 06/27/24 Chief Complaint: Fall/Minor Trauma Stated Complaint: fall-dog pulled her down stairs Time Seen by Provider: 06/27/24 06:48 Source: patient and RN notes reviewed Mode of arrival: ambulatory Limitations: no limitations History of Present Illness HPI Narrative: Tamiko is a 49-year-old female with history of sleep difficulty and hypertension who comes to the emergency room for neck and jaw pain after falling down 4 steps. Tamiko states that she was getting ready to walk her dog and was not quite ready for him to go and he pulled her and she fell straight forward landing on her knees and chin down forceps. Since that time she has had neck pain and is worried about a concussion. She also has chin pain. She does not think her teeth are compromised. She states that she really has not slept all night and so maybe that is why she does not feel quite well-because she is tired. She denies abdominal pain. Does states she had some mid back pain later during our discussion. She states she is worried about post concussive syndrome and everything that comes with that. No numbness or tingling of the arms. Does note that both of her knees hurt and they do have abrasions, but she was able to ambulate. Patient notes that she takes medications for hypertension, is not allergic to any medications but does not like Phenergan. She has about 7 alcoholic drinks a week and does not smoke. She is originally from [place] but is currently staying in [place]. She drove herself here to the hospital. No numbness or tingling of the limbs. No loss of consciousness. Related Data Home Medications ?Medication ?Instructions ?Recorded ?Confirmed amlodipine 5 mg tablet 5 mg PO DAILY 03/23/23 06/27/24 bupropion HCl 150 mg tablet,12 hr 150 mg PO BID 03/23/23 06/27/24 sustained-release esomeprazole magnesium 40 mg 40 mg PO DAILY 03/23/23 06/27/24 capsule,delayed release gabapentin 400 mg capsule 400 mg PO 3XD 03/23/23 06/27/24 losartan 100 mg tablet 100 mg PO DAILY 03/23/23 06/27/24 metoprolol succinate 25 mg 25 mg PO DAILY 06/27/24 06/27/24 tablet,extended release 24 hr ropinirole 2 mg tablet 2 mg PO QPM 06/27/24 06/27/24 zolpidem 10 mg tablet 10 mg PO QPM PRN 06/27/24 06/27/24 Allergies Allergy/AdvReac Type Severity Reaction Status Date / Time No Known Drug Allergies Allergy Verified 12/12/23 15:54 Review of Systems Status of ROS: Reports: 6 or more systems reviewed and unremarkable except as noted in History and below Const: Denies: fever ENMT: Reports: neck pain; Denies: hoarseness Cardio: Denies: chest pain Resp: Denies: cough GI: Denies: abdominal pain Musculo: Reports: neck pain and extremity pain (Knees) Neuro: Reports: headache; Denies: numbness in extremities PFSH PFS Medical History Bronchitis ?J40 - Bronchitis, not specified as acute or chronic (ICD-10) Cough ?R05.9 - Cough, unspecified (ICD-10) Social History Smoking Status: Never smoker Second hand tobacco smoke exposure: No How often do you have a drink containing alcohol: never How often do you have six or more drinks on one occasion: Never AUDIT-C Alcohol total score: 0 Non-prescribed substance use: denies use service: No Exam Narrative: Exam Narrative: Primary survey: Airway open Breathing easy Circulation no obvious bleeding. Patient is warm to the touch. Disability: GCS of 15. Abrasions on the knees but no obvious deformities. EOM is full. Pupils are reactive. Tamiko is alert and oriented. EOM is full. Her eyes are reactive and pupils are equal. Head is atraumatic. I did not note any ecchymosis on the chin but she does have pain when the cervical collar is placed. I do see that she is moving her jaw normally and her speech and mentation are intact. Trachea is midline. Her teeth appear to be intact. She is speaking normally. She does have discomfort when moving her neck thus we do place a collar. I did not elicit any midline cervical tenderness with palpation. No step-offs noted. No pain with palpation down her thoracic or lumbar spine. No step-offs palpated.. Abdomen is soft nontender. Patient has bruises on her lower limbs and superficial abrasion on her knees right greater than left. No obvious deformities. Moving her upper extremities spontaneously and symmetrically. Moving her lower extremities symmetrically. Full Secondary survey pending following cervical spine CT. Const: Vital Signs, click to edit/add: Vital Signs - 24 hr 06/27/24 06:39 Temperature 97.4 F L Pulse Rate [Pulse Oximeter] 86 Respiratory Rate 16 Blood Pressure [Ri ght Upper Arm] 132/105 H Pulse Oximetry 100 Oxygen Delivery Me thod Room Air Documenting provider has reviewed patient's vital signs: yes Course Course ED Course: Patient did not have loss of consciousness and does not meet TTA requirements but certainly needs urgent evaluation with CT of her cervical spine. I do have great concern regarding the mechanism of injury and possibility of cervical spine injury and convey this to her. She is moving her upper extremities without difficulty and has no complaints of numbness or tingling. At collar was immediately placed and we will now be getting CTs of her head cervical spine and mandible. Patient then noted that she had some back pain. I did palpate down thoracic and lumbar spine buttocks and she has no thoracic or lumbar tenderness. Patient does tell me she fell forwards and not backwards. I do add a thoracic plain film given her discomfort. Will plan on repeat examination with removal of clothing when she returns, I am very concerned about her neck. As I was departing, Bruce asked if she can get something for pain-at this time radiology is on the way and I do want to have the CT done as soon as possible. Once she returns we will talk about appropriate pain medications as she did drive here today. She did state that her could come and pick her up. At this time vital signs are stable with no evidence of tachycardia or hypoxia or tachypnea. Blood pressure is elevated. Would ask for repeat blood pressure. She has a history of hypertension. Patient now states that she has some pain in her sternum and possibly hit her breasts when she fell. When she returns I do plan on a repeat examination. Further tests may be ordered as appropriate. Reevaluation(s) Reevaluation #1: Patient was transferred by wheelchair to the radiology suite. Once there, however, she immediately came back by wheelchair stating that she wanted to go to a hospital that would care for her appropriately. I do talk to her and Tamiko is questioning our mode of transfer given her possible injury. She was upset that there were no thoracic films ordered and indeed there were but perhaps not immediately known by the gi technician. I do explain that full spinal immobilization is not something that we would normally do in her case given her mechanism but we certainly care about protecting her spine. We would not want her walking distances but certainly standing up transferring into a wheelchair would be acceptable. I did apologize and offer to transfer her back over via the cart if she would feel more comfortable. She notes that her sternum now hurts. While my plan had originally been to have the cervical spine and head CTs be a stat order, and that patient return for more thorough examination with subsequent tests ordered as appropriate, I have now offered to cancel the thoracic plain films and have her go through a chest and abdomen and pelvis CT with recon film of the thoracic and lumbar spine. Although she had no point tenderness on her thoracic spine, she now has other complaints of discomfort. Patient declines all interventions. Does sign out AMA. She notes that her concern is that she was not log-rolled and transferred to Radiology with full spinal precautions. I do state that leaving here places her at greater risk if her concern is about not moving Getting in a car and driving elsewhere certainly places her at greater risk with the significant movement. I have asked her if we could start over once again. I have significant concerns regarding her cervical spine. Especially if she is driving. She states her is in [place] and is a long way away. She wants to leave. Tamiko asked me to our admission nurse coordinator is as well as what level care we are. She states that she wants to go to a higher level of care at this time. As she depart she is walking normally, mentating normally, is not under the influence by my assessment and therefore able to make her own decisions for her medical care. No obvious focal neurological deficits but again, patient declining any further examination radiological studies and does appear to be aware of the risk of leaving such as paralysis and . Vital Signs Vital signs: Initial Vital Signs Temperature 97.4 F L 06/27/24 06:39 Temperature Source Temporal Artery Scan 06/27/24 06:39 Pulse Rate 86 06/27/24 06:39 Respiratory Rate 16 06/27/24 06:39 Blood Pressure 132/105 H 06/27/24 06:39 Blood Pressure Mean 114 H 06/27/24 06:39 Blood Pressure Position Sitting 06/27/24 06:39 Pulse Oximetry 100 06/27/24 06:39 Oxygen Delivery Method Room Air 06/27/24 06:39 Vital Signs Temperature 97.4 F L 06/27/24 06:39 Pulse Rate 86 06/27/24 06:39 Respiratory Rate 16 06/27/24 06:39 Blood Pressure 132/105 H 06/27/24 06:39 Pulse Oximetry 100 06/27/24 06:39 Oxygen Delivery Method Room Air 06/27/24 06:39 Temperature 97.4 F L 06/27/24 06:39 Pulse Rate 86 06/27/24 06:39 Respiratory Rate 16 06/27/24 06:39 Blood Pressure 132/105 H 06/27/24 06:39 Pulse Oximetry 100 06/27/24 06:39 Oxygen Delivery Method Room Air 06/27/24 06:39 MDM - Fall MDM Narrative Medical decision making narrative: 1. Fall-complaints include neck pain, jaw pain, abrasions and bruises of the lower extremities as well as back and chest pain. Patient declines any further interventions. 2. Neck pain-collar placed. Stat CTs ordered. Patient declined once she arrived in Radiology. No focal neurological deficits. 3. Thoracic and sternal pain-thoracic films initially ordered, with other pain now starting to be realized had planned on changing this to cap CT but again patient declines. 4. Disposition-patient has signed AMA and states that she will be going to a hospital with a higher level of care. Does appear to be aware of the risks associated with departure and movement associated with going to her car and driving. Medical Records Attestation: I reviewed the patient's medical records. Discharge Plan Discharge Patient Disposition: Left Against Medical Advice Prescriptions: No Action esomeprazole magnesium 40 mg capsule,delayed release(DR/EC) 40 mg PO DAILY amlodipine 5 mg tablet 5 mg PO DAILY gabapentin 400 mg capsule 400 mg PO 3XD bupropion HCl 150 mg tablet sustained-release 12 hr 150 mg PO BID losartan 100 mg tablet 100 mg PO DAILY ropinirole 2 mg tablet 2 mg PO QPM metoprolol succinate 25 mg tablet extended release 24 hr 25 mg PO DAILY zolpidem 10 mg tablet 10 mg PO QPM PRN Follow Up/Referrals: Christina Ko MD [Primary Care Provider] - Stand Alone Forms: Wealth Access Info Instructions
--- OUTSIDE RECORDS SUMMARY | 2024-06-27 07:11 | XMS_ITS | Encounter Summary ---
Author Organization [facility] Address [address] [place] [address] Care Team Providers Care Cargo Station Worker Name Role Phone No Ref-Primary, Physician Primary Care Provider Venu Mcclelland MD Unavailable [phone] Ramsey Mahoney MD Unavailable [phone] Barron Chase DO Unavailable [phone] Christina Ko MD Primary Care Provider [phone] Encounter Details Date Type Department Care Team (Late st Contact Info) Description 06/29/2023 [facility] Medical Advice [address] [address] Bettie Ramso Social History Tobacco Use Types Packs/Day Years Used Date Smoking Tobacco: Never Comments:vape Alcohol Use Standard Drinks/Week Comments Yes 0 (1 standard drink = 0.6 oz pur e alcohol) Adolescent Education Answer Date Record ed Getting School Help Needed Not on file 05/07 Comments Unknown Sex and Gender Information Value Date Recorded Sex Assigned at Not on file Legal Sex Female 8:32 PM PROGRAM ARRANGER Gender Identity Not on file Sexual Orientation Not on file documented as of this encounter Plan of Treatment Not on file documented as of this encounter Visit Diagnoses Not on filedocumented in this encounter Care Teams Cargo Station Worker Relationship Specialty Start Date End Date No Ref-Primary, Physician PCP - General 05/04/23 12/11/23 Christina Ko MD [address] [place] [address] LUIS ALFREDO Saavedra [phone] PCP - General 12/12/23 Venu Mcclelland MD [address] [facility] [address] [place] [address] Assigned OBGYN Provider 07/28/23 Ramsey Mahoney MD [address] [place] [address] Physician Neurology 08/04/23 [place] [address] [place] [address] Assigned PCP 08/27/23 documented as of this encounter
--- OUTSIDE RECORDS SUMMARY | 2024-06-27 07:11 | XMS_ITS | Encounter Summary ---
Author Organization [facility] Address [address] [place] [address] Care Team Providers Care Gas Combustion Engineer Name Role Phone Christina Ko M.D. Primary Care Provider Encounter Details Date Type Department Care Team (Late st Contact Info) Description 06/16/2024 Orders Only Department of Family Medicine, [facility], in [place], [place] [address] [place] [address] Christina Ko M.D. [address] [place] [address] Social History Tobacco Use Types Packs/Day Years Used Date Smoking Tobacco: Former Cigarettes Smokeless Tobacco: Never [facility] Utilities Answer Date Recorded In the past [...] your living situation today? I have a [facility] place to live 10/20/2023 Comments No Sex [...] on filedocumented in this encounter Care Teams Gas Combustion Engineer Relationship Specialty Start Date End Date Christina Ko M.D. [address] [place] [phone] PCP - General Family Medicine 08/15/22 documented as of this encounter
--- OUTSIDE RECORDS SUMMARY | 2024-06-27 07:11 | XMS_ITS | Clinical Summary ---
Author Organization [facility] Address [address] [place] [address] Care Team Providers Care Threader Operator Name Role Phone Venu Mcclelland MD Unavailable [phone] Ramsey Mahoney MD Unavailable [phone] Barron So DO Unavailable [phone] Christina Ko MD Primary Care Provider [phone] Allergies Active Allergy Reactions Criticality Noted Date [...] gummy. 4 gummies PO daily Active Biotin 34537 MCG TABS Take 1 tablet by mouth [...] often do you attend chur ch or methodist services? 1 to 4 times per year 07/23/2023 Do you belong to any clubs o r organizations such as sikhism groups, unions, fraternal or athletic groups, or [...] Answer Date Recorded PHQ-2 Score 1 07/27/2023 [facility] - Occupational [...] in an abandoned building, in an overnight senior living, or couch-surfing.) Yes 07/23/2023 Are you worried [...] on file Legal Sex Female 8:32 PM TEAM DRIVER Gender Identity Not on file Sexual Orientation Not on file Last Filed Vital Signs Vital Sign Reading Time Taken Comments Blood Pressure 104/83 09/09/2023 2:50 PM CDT Pulse 85 09/09/2023 2:50 PM CDT Temperature 37 C (98.6 F) 05/08/2023 7:39 PM TEAM DRIVER Respiratory Rate 16 09/09/2023 2:50 PM CDT [...] BASIC METABOLIC PANEL Routine 05/08/2023 7:21 AM TEAM DRIVER from Last 3 Months or Most Recently Relevant to Health Maintenance Results * COLONOSCOPY (09/09/2023 1:17 PM CDT) COLONOSCOPY [facility] Patient Name: Tamiko Massey Procedure Date: 09/09/2023 [...] continuously. The Olympus Adult Colonoscope, Model # [id number], [facility] [id number] was introduced through the anus and advanced [...] malignant neoplasm of colon CPT copyright 2021 [employer]. All rights reserved. The codes documented in this report are preliminary and upon material attendant review may be revised to meet current [...] 1:47 PM CDT 07/27/2023 1:48 PM CDT [facility] - BLOOD ORDERABLES Final Re sult Performing Organization Address [facility] Co de Phone Number LABORATORY [facility] Preemption Core Lab [address] [facility], [address] [id number] * Hepatitis C Screen Reflex to HCV RNA Quant and Genotype (07/27/2023 1:47 PM CDT) [facility] Hepatitis C Antibody Nonreactive Nonreactive 07/28/2023 [...] 1:47 PM CDT 07/27/2023 1:[address] [facility] LAB - BLOOD ORDERABLES Final Re sult Performing Organization Address [facility] Co de Phone Number LABORATORY [facility] Preemption Core Lab [address] [facility], [address] [id number] [place] [address] * (ABNORMAL) Lipid Profile (07/27/2023 1:47 PM CDT) [facility] Cholesterol 183 <200 mg/dL 07/27/2023 11:47 [...] BLOOD ORDERABLES Final Re sult [facility] LABORATORY [facility] Preemption Core Lab [address] [facility], [address] [place] [address], [facility] * Hemoglobin A1c (07/27/2023 1:47 PM CDT) Hemoglobin A1C 5.2 0.0 - 5.6 % 07/27/2023 1:56 PM CDT [facility] Comment: Normal <5.7% Prediabetes 5.7-6.4% Diabetes 6.5% or higher Note: Adopted from ADA consensus guidelines. Blood BLOOD SPECIMEN / Unknown Venipuncture / Unknown 07/27/2023 1:47 PM CDT 07/27/2023 1:48 PM CDT Barron So DO LAB - BLOOD ORDERABLES Final Re sult LABORATORY [facility] [address] [facility] Lab (no room number, 1st floor of clinic) [place] [address], [facility] [phone] * Pap screen with HPV - recommended [...] component of this testing was completed at [facility] 07/17/2023 10:05 AM CDT [facility] Brushing CERVIX UTERI STRUCTURE / Unknown Non-blood Collection / Unknown 07/14/2023 4:10 PM CDT 07/14/2023 4:19 PM CDT Venu Mcclelland MD LAB - BEAKER AP Final Resu lt SPECIALTY LABS Specialty Lab [address] [facility], [address] [address], [facility] * HPV High Risk Types DNA Cervical [...] al Result MOLECULAR DIAGNOSTICS [facility] [address] [facility] [address] [facility], [address] [place] [address], [facility] * Basic metabolic panel (05/08/2023 7:21 AM [facility]) Sodium 136 135 - 145 mmol/L 05/08/2023 7:57 AM [facility] Comment:Reference intervals for this test were updated on 12/30/2022 to more accurately reflect our healthy population. There may be differences in the flagging of prior results with similar values performed with this method. Interpretation of those prior results can be made in the context of the updated reference intervals. Potassium 4.4 3.4 - 5.3 mmol/L 05/08/2023 7:57 AM [facility] Chloride 106 98 - 107 mmol/L 05/08/2023 7:57 AM [facility] Carbon Dioxide (CO2) 23 22 - 29 mmol/L 05/08/2023 7:57 AM [facility] Anion Gap 7 7 - 15 mmol/L 05/08/2023 7:57 AM [facility] Urea Nitrogen 16.0 6.0 - 20.0 mg/dL 05/08/2023 7:57 AM [facility] Creatinine 0.68 0.51 - 0.95 mg/dL 05/08/2023 7:57 AM [facility] GFR Estimate >90 >60 mL/min/1. 73m2 05/08/2023 7:57 AM [facility] Calcium 9.0 8.6 - 10.0 mg/dL 05/08/2023 7:57 AM [facility] Glucose 96 70 - 99 mg/dL 05/08/2023 7:57 AM [facility] Blood STRUCTURE OF RIGHT UPPER LIMB / Unknown Venipuncture / Unknown 05/08/2023 7:21 AM TEAM DRIVER 05/08/2023 7:25 AM [facility] Ramya Gunderson MD LAB - BLOOD ORDERABLES Fi nal Result LABORATORY [facility] Acute Care Lab [address], [address] [place] [address], [facility] [phone] from Last 3 Months or Most Recently Relevant to Health Maintenance Insurance [facility] Advance Directives For more information, please contact: [phone] * Full Code (Latest Code Status on File) Date Activated Date Inactivated Comments 05/07/2023 1:26 PM 05/08/2023 9:55 PM All basic and advanced life-sustaining interventions are performed as appropriate Question Answer Comments Code status determined by: Discussion with patie nt/ legal decision maker Care Teams Threader Operator Relationship Specialty Start Date End Date Chritsina Ko MD [address] [place] [address] LU[place] ALFREDO Saaved[place] [phone] PCP - General 12/12/23 Venu Mcclelland MD [address] [facility] [address] [place] [address] Assigned OBGYN Provider 07/28/23 Ramsey Mahoney MD [address] [place] [address] Physician Neurology 08/04/23 [place] [address] [place] [address] Assigned PCP 08/27/23
--- OUTSIDE RECORDS SUMMARY | 2024-06-27 07:11 | XMS_ITS | Clinical Summary ---
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 PCP - General 10/11/22
--- OUTSIDE RECORDS SUMMARY | 2024-06-27 07:11 | XMS_ITS | Encounter Summary ---
Author Organization [facility] Address [address] [place] [address] Care Team Providers Care Adult Specialist Name Role Phone Venu Mcclelland MD Unavailable [phone] Ramsey Mahoney MD Unavailable [phone] Barron Chase DO Unavailable [phone] Christina Ko MD Primary Care Provider [phone] Encounter Details Date Type Department Care Team (Late st Contact Info) Description 01/15/2024 MyC Medical Advice [facility] [id number] [place] [phone] Barron Chase DO [id number] [place] [address] Social History Tobacco Use Types Packs/Day [...] often do you attend chur ch or sikh services? 1 to 4 times per year 07/23/2023 Do you belong to any clubs o r organizations such as synagogue groups, unions, fraternal or athletic groups, or [...] Answer Date Recorded PHQ-2 Score 1 07/27/2023 [facility] of Occupat ional Health - Occupational Stress [...] in an abandoned building, in an overnight long term, or couch-surfing.) Yes 07/23/2023 Are you worried [...] on file Legal Sex Female 8:32 PM CANDY DEPARTMENT MANAGER Gender Identity Not on file Sexual Orientation Not on file documented as of this encounter Plan of Treatment Not on file documented as of this encounter Visit Diagnoses Not on filedocumented in this encounter Care Teams Adult Specialist Relationship Specialty Start Date End Date Christina Ko MD [address] [place] [phone] PCP - General 12/12/23 Venu Mcclelland MD [address] [address] Assigned OBGYN Provider 07/28/23 Ramsey Mahoney MD 9 [place] [address] Physician Neurology 08/04/23 [place] [address] [place] [address] Assigned PCP 08/27/23 documented as of this encounter
--- OUTSIDE RECORDS SUMMARY | 2024-06-27 07:11 | XMS_ITS | Encounter Summary ---
Author Organization [facility] Address [address] [place] [address] Care Team Providers Care Employee Adviser Name Role Phone Christina Ko M.D. Primary Care Provider Reason for Visit * Reason Onset Date Comments Quality 05/17/2024 HTN Encounter Details Date Type Department Care Team (Late st Contact Info) Description 05/17/2024 Clinical Communication Department of Family Medicine, [facility], in [place], [place] [address] [place] [phone] Ricehlle Adams, RJosé MiguelN. Quality (HTN) Social History Tobacco Use Types Packs/Day Years Used Date Smoking Tobacco: Former Cigarettes Smokeless Tobacco: Never [facility] Utilities Answer Date Recorded In the [...] your living situation today? I have a [facility] place to live 10/20/2023 Comments Unknown [...] Comments Blood Pressure 150/107 05/18/2024 4:00 AM SCRUM PROJECT MANAGER Juan Diego e Reading Pulse - - Temperature - - Respiratory Rate - - Oxygen Saturation - - Inhaled Oxygen Concentration - - Weight - - Height - - Body Mass Index - - documented in this encounter Plan of Treatment Not on file documented as of this encounter Visit Diagnoses Not on filedocumented in this encounter Care Teams Employee Adviser Relationship Specialty Start Date End Date Christina Ko M.D. [address] [place] [phone] PCP - General Family Medicine 08/15/22 documented as of this encounter
--- OUTSIDE RECORDS SUMMARY | 2024-06-27 07:11 | XMS_ITS | Encounter Summary ---
Author Organization [facility] Address [address] [place] [address] Care Team Providers Care Family Practice Physician Assistant Name Role Phone Christina Ko M.D. Primary Care Provider [phone] Encounter Details Date Type Department Care Team (Latest Contact Info) Description 06/07/2024 3:35 PM CLAY STAIN MIXER - 06/07/2024 11:59 PM CLAY STAIN MIXER Hospital Encounter Department of Laboratory Medicine in [place], [place] [address] [place] [phone] Christina Ko M.D. [address] [place] [phone] Hypertension Essential Primary Discharge Disposition: Home or Self Care Social History Tobacco Use Types Packs/Day Years Used Date Smoking Tobacco: Former Cigarettes Smokeless Tobacco: Never [facility] Utilities Answer Date Recorded In the past 12 months has [facility] electric, gas, oil, or water [employer] threatened to shut off services in your [...] your living situation today? I have a [facility] place to live 10/20/2023 Comments No [...] METABOLIC PANEL, S/P Routine 06/07/2024 3:50 PM CLAY STAIN MIXER Hypertension Essential Primary documented in this encounter Results * (ABNORMAL) Basic Metabolic Panel (06/07/2024 3:50 PM CLAY STAIN MIXER) Potassium, P 4.2 3.6 - 5.2 mmol/L 06/07/2024 6:49 PM CLAY STAIN MIXER OWAT Sodium, P 139 135 - 145 mmol/L 06/07/2024 6:49 PM CLAY STAIN MIXER OWAT Chloride, P 104 98 - 107 mmol/L 06/07/2024 6:49 PM CLAY STAIN MIXER OWAT Bicarbonate, P 19(L) 22 - 29 mmol/L 06/07/2024 6:49 PM CLAY STAIN MIXER OWAT Anion Gap, P 16(H) 7 - 15 06/07/2024 6:49 PM CLAY STAIN MIXER OWAT BUN (Blood Urea Nitrogen), P 8 6 - 21 mg/dL 06/07/2024 6:49 PM CLAY STAIN MIXER OWAT Creatinine 0.62 0.59 - 1.04 mg/dL 06/07/2024 6:49 PM CLAY STAIN MIXER OWAT Estimated GFR (eGFR) >90 >=60 mL/min/BSA 06/07/2024 6:49 PM CLAY STAIN MIXER OWAT Comment: Estimated GFR calculated using the 2020 CKD_EPI creatinine equation. Calcium, Total, P 10.2(H) 8.6 - 10.0 mg/dL 06/07/2024 6:49 PM CLAY STAIN MIXER OWAT Glucose, P 75 70 - 140 mg/dL 06/07/2024 6:49 PM CLAY STAIN MIXER OWAT Blood (Blood, Venous) 06/07/2024 3:50 PM CLAY STAIN MIXER 06/07/2024 5:50 PM CLAY STAIN MIXER us Christina Ko M.D. LAB BLOOD ADD-ON Final Resul t [facility] [address] [place] [address], [facility] OWAT [facility] in [place] [address] [place] [address] documented in this encounter Visit Diagnoses Diagnosis Hypertension Essential Primary documented in this encounter Care Teams Family Practice Physician Assistant Relationship Specialty Start Date End Date Christina Ko M.D. [address] [place] [phone] PCP - General Family Medicine 08/15/22 documented as of this encounter
--- OUTSIDE RECORDS SUMMARY | 2024-06-27 07:11 | XMS_ITS | Encounter Summary ---
Author Organization [facility] Address [address] [place] [address] Care Team Providers Care Aircraft De Icer Installer Name Role Phone No Ref-Primary, Physician Primary Care Provider Venu Mcclelland MD Unavailable [phone] Ramsey Mahoney MD Unavailable [phone] Barron Chase DO Unavailable [phone] Christina Ko MD Primary Care Provider [phone] Encounter Details Date Type Department Care Team (Late st Contact Info) Description 08/17/2023 MyC Medical Advice [address] [phone] [place] Chase [place] [id number] [place] [address] Social History Tobacco Use Types Packs/Day [...] often do you attend chur ch or denominational services? 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 Gender Identity Not on file Sexual Orientation Not on file documented as of this encounter Plan of Treatment Not on file documented as of this encounter Visit Diagnoses Not on filedocumented in this encounter Care Teams Aircraft De Icer Installer Relationship Specialty Start Date End Date No Ref-Primary, Physician PCP - General 05/04/23 12/11/23 Christina Ko MD [address] [place] [phone] PCP - General 12/12/23 Venu Mcclelland MD [address] [address] Assigned OBGYN Provider 07/28/23 Ramsey Mahoney MD [address] [place], [place] [address] Physician Neurology 08/04/23 [place] [address] [place] [address] Assigned PCP 08/27/23 documented as of this encounter
--- OUTSIDE RECORDS SUMMARY | 2024-06-27 07:11 | XMS_ITS | Encounter Summary ---
Author Organization [facility] Address [address] [place] [address] Care Team Providers Care Purchasing Engineer Name Role Phone No Ref-Primary, Physician Primary Care Provider Venu Mcclelland MD Unavailable [phone] Ramsey Mahoney MD Unavailable [phone] Barron Chase DO Unavailable [phone] Christina Ko MD Primary Care Provider [phone] Encounter Details Date Type Department Care Team (Late st Contact Info) Description 09/01/2023 MyC Medical Advice [facility] [address] 4[address] [place] [address] Erma Waggoner RN Social History [...] often do you attend chur ch or rastafari services? 1 to 4 times per year 07/23/2023 Do you belong to any clubs o r organizations such as sabianist groups, unions, fraternal or athletic groups, or [...] Answer Date Recorded PHQ-2 Score 1 07/27/2023 [facility] of Occupat ional Health - [...] in an abandoned building, in an overnight residential, or couch-surfing.) Yes 07/23/2023 Are you worried [...] on file Legal Sex Female 8:32 PM MUSIC LIBRARY ASSISTANT Gender Identity Not on file Sexual Orientation Not on file documented as of this encounter Plan of Treatment Not on file documented as of this encounter Visit Diagnoses Not on filedocumented in this encounter Care Teams Purchasing Engineer Relationship Specialty Start Date End Date No Ref-Primary, Physician PCP - General 05/04/23 12/11/23 Christina Ko MD [address] [place] [phone] PCP - General 12/12/23 Venu Mcclelland MD [address] [address] Assigned OBGYN Provider 07/28/23 Ramsey Mahoney MD [address] [place] [address] Physician Neurology 08/04/23 [place] [address] [place] [address] Assigned PCP 08/27/23 documented as of this encounter
--- OUTSIDE RECORDS SUMMARY | 2024-06-27 07:11 | XMS_ITS | Encounter Summary ---
Author Organization [facility] Address [address] [place] [address] Care Team Providers Care Inside Sales Professional Name Role Phone No Ref-Primary, Physician Primary Care Provider Venu Mcclelland MD Unavailable [phone] Ramsey Mahoney MD Unavailable [phone] Barron Chase DO Unavailable [phone] Christina Ko MD Primary Care Provider [phone] Encounter Details Date Type Department Care Team (Late st Contact Info) Description 08/26/2023 MyC Medical Advice [facility] [address] [place] [address] Neville Aranda Social History Tobacco [...] often do you attend chur ch or hinduism services? 1 to 4 times per year 07/23/2023 Do you belong to any clubs o r organizations such as worship groups, unions, fraternal or athletic groups, or [...] Answer Date Recorded PHQ-2 Score 1 07/27/2023 [facility] [place] of Occupat ional Health - Occupational Stress [...] in an abandoned building, in an overnight mcc, or couch-surfing.) Yes 07/23/2023 Are you worried [...] on file Legal Sex Female 8:32 PM ELECTRONIC ENGINEERING TECHNICIAN Gender Identity Not on file Sexual Orientation Not on file documented as of this encounter Plan of Treatment Not on file documented as of this encounter Visit Diagnoses Not on filedocumented in this encounter Care Teams Inside Sales Professional Relationship Specialty Start Date End Date No Ref-Primary, Physician PCP - General 05/04/23 12/11/23 Christina Ko MD [address] [place] [phone] PCP - General 12/12/23 Venu Mcclelland MD [address] [address] Assigned OBGYN Provider 07/28/23 Ramsey Mahoney MD 9 [place] [address] Physician Neurology 08/04/23 [place] [address] [place] [address] Assigned PCP 08/27/23 documented as of this encounter
--- OUTSIDE RECORDS SUMMARY | 2024-06-27 07:11 | XMS_ITS | Encounter Summary ---
Author Organization [facility] Address [address] [place] [address] Care Team Providers Care Photographers' Model Name Role Phone Christina Ko M.D. Primary Care Provider Reason for Visit * Reason Comments Insomnia And concern with blo od pressure * Appointment Request (Routine) - Closed Specialty Diagnoses / Procedures Referred By Mikael phillips Referred To Contact Family Medicine Referral ID Status Reason Start Date Expiration Date Visits Re quested Visits Authorized [id number] Closed 06/01/2024 09/01/2025 1 1 Encounter Details Date Type Department Care Team (Late st Contact Info) Description 06/07/2024 3:00 PM BOILER CONTROL TECHNICIAN Office Visit Department of Family Medicine, [facility], in [place], [place] [address] [place] [phone] Christina Ko M.D. [address] [place] [phone] Hypertension Essential Primary (Primary Dx); Insomnia Social History Tobacco Use Types Packs/Day Years Used Date Smoking Tobacco: Former Cigarettes Smokeless Tobacco: Never Tobacco Cessation:Counseling Given: Not Answered [facility] Utilities Answer Date Recorded In the past 12 months has e [employer], gas, oil, or water [employer] threatened to shut off services in your [...] your living situation today? I have a [facility] place to live 10/20/2023 Comments No [...] Comments Blood Pressure 163/119 06/07/2024 3:03 PM BOILER CONTROL TECHNICIAN Pulse 69 06/07/2024 3:03 PM BOILER CONTROL TECHNICIAN Temperature 36.7 C (98.1 F) 06/07/2024 2:51 PM BOILER CONTROL TECHNICIAN Respiratory Rate - - Oxygen Saturation - - Inhaled Oxygen Concentration - - Weight 91 kg (200 lb 9.9 oz) 06/07/2024 2:51 PM BOILER CONTROL TECHNICIAN Height 170 cm (5' 6.93) 06/07/2024 2:51 PM BOILER CONTROL TECHNICIAN Body Mass Index 31.49 06/07/2024 2:51 PM BOILER CONTROL TECHNICIAN documented in this encounter Progress Notes * Christina Ko M.D. - 06/07/2024 3:00 PM CST Progress Note Patient is 47 years old female with past medical history significant for hyperlipidemia, insomnia, anxiety, depression, GERD, Florinda Pooler, neuropathy, restless leg syndrome, obesity who presented today to the clinic for evaluation of insomnia and hypertension. 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) [...] Date Anxiety Depression Gastroesophageal Reflux Disease Guillain Pooler Syndrome (HCC) Hypertension Essential Primary Insomnia Neuropathy Restless Leg Syndrome [3] Social History Tobacco Use Smoking status: Former Types: Cigarettes Smokeless tobacco: Never Vaping Use Vaping status: current every day use ER CONTROL TECHNICIAN documented in this encounter Plan of Treatment Not on file documented as of this encounter Results * (ABNORMAL) Basic Metabolic Panel (06/07/2024 3:50 PM BOILER CONTROL TECHNICIAN) Pathologist [facility] Potassium, P 4.2 3.6 - 5.2 mmol/L 06/07/2024 6:49 PM BOILER CONTROL TECHNICIAN OWAT Sodium, P 139 135 - 145 mmol/L 06/07/2024 6:49 PM BOILER CONTROL TECHNICIAN OWAT Chloride, P 104 98 - 107 mmol/L 06/07/2024 6:49 PM BOILER CONTROL TECHNICIAN OWAT Bicarbonate, P 19(L) 22 - 29 mmol/L 06/07/2024 6:49 PM BOILER CONTROL TECHNICIAN OWAT Anion Gap, P 16(H) 7 - 15 06/07/2024 6:49 PM BOILER CONTROL TECHNICIAN OWAT BUN (Blood Urea Nitrogen), P 8 6 - 21 mg/dL 06/07/2024 6:49 PM BOILER CONTROL TECHNICIAN OWAT Creatinine 0.62 0.59 - 1.04 mg/dL 06/07/2024 6:49 PM BOILER CONTROL TECHNICIAN OWAT Estimated GFR (eGFR) >90 >=60 mL/min/BSA 06/07/2024 6:49 PM BOILER CONTROL TECHNICIAN OWAT Comment: Estimated GFR calculated using the 2020 CKD_EPI creatinine equation. Calcium, Total, P 10.2(H) 8.6 - 10.0 mg/dL 06/07/2024 6:49 PM BOILER CONTROL TECHNICIAN OWAT Glucose, P 75 70 - 140 mg/dL 06/07/2024 6:49 PM BOILER CONTROL TECHNICIAN OWAT Blood (Blood, Venous) 06/07/2024 3:50 PM BOILER CONTROL TECHNICIAN 06/07/2024 5:50 PM BOILER CONTROL TECHNICIAN us Christina Ko M.D. LAB BLOOD ADD-ON Final Resul t [facility] [address] [place] [address], [facility] [place] [address] [place] [address] documented in this encounter Visit Diagnoses Diagnosis Hypertension Essential Primary- Primary Insomnia documented in this encounter Care Teams Photographers' Model Relationship Specialty Start Date End Date Christina Ko M.D. [address] [place] [phone] PCP - General Family Medicine 08/15/22 documented as of this encounter
--- OUTSIDE RECORDS SUMMARY | 2024-06-27 07:11 | XMS_ITS | Encounter Summary ---
Author Organization [facility] Address [address] [place] [address] Care Team Providers Care Pig Machine Supervisor Name Role Phone No Ref-Primary, Physician Primary Care Provider Venu Mcclelland MD Unavailable [phone] Ramsey Mahoney MD Unavailable [phone] Barron Chase DO Unavailable [phone] Christina Ko MD Primary Care Provider [phone] Encounter Details Date Type Department Care Team (Late st Contact Info) Description 08/15/2023 MyC Medical Advice [address] [phone] [place] [id number] [place] [address] Social History Tobacco Use Types Packs/Day [...] often do you attend chur ch or jehovah's witness services? 1 to 4 times per year 07/23/2023 Do you belong to any clubs o r organizations such as quaker groups, unions, fraternal or athletic groups, or [...] Answer Date Recorded PHQ-2 Score 1 07/27/2023 [facility] of Occupat ional Health - Occupational Stress [...] on file Legal Sex Female 8:32 PM COMMUNITY INTEGRATION SPECIALIST Gender Identity Not on file Sexual [...] on filedocumented in this encounter Care Teams Pig Machine Supervisor Relationship Specialty Start Date End Date No Ref-Primary, Physician PCP - General 05/04/23 12/11/23 Christina Ko MD [address] [place] [phone] PCP - General 12/12/23 Venu Mcclelland MD [facility] E [address] [address] Assigned OBGYN Provider 07/28/23 Ramsey Mahoney MD [address] [place] [address] Physician Neurology 08/04/23 [place] [address] [address] [place], [place] [phone] Assigned PCP 08/27/23 documented as of this encounter
--- OUTSIDE RECORDS SUMMARY | 2024-06-27 07:11 | XMS_ITS | Clinical Summary ---
Author Organization [facility] Address [address] [place] [address] Care Team Providers Care Manufacturing Process Technician Name Role Phone Christina Ko M.D. Primary Care Provider Source Comments Patient records contain information from all sites at [facility]. For routine questions regarding patient records, call [phone] during business hours, M-F 8:00 AM - 5:00 PM Central Time. Record requests for emergency care only can be directed to [phone] at any time.[facility] Allergies Active Allergy Reactions Criticality Noted [...] 025 Discontin ued(Thera py completed ) vitamins A,C,U-ozay-hmzyta (ICAPS AREDS) 14,320 Units-226 mg-200 Units per [...] Depression 08/30/2022 Gastroesophageal Reflux Disease 08/30/2022 Guillain [place] Syndrome 08/30/2022 Hypertension Essential Primary 08/30/2022 Insomnia 08/30/2022 Neuropathy 08/30/2022 Restless Leg Syndrome 08/30/2022 Encounters Date Type Department Care Team Description 06/16/2024 Orders Only Department of [facility] Medicine, [facility] [place], in [address] [phone] Christina Ko M.D. 06/09/2024 Results Follow-Up Department of [facility], [facility] [place], in [address] [phone] Petar Tenorio, L.P.NJosé Miguel Basic Metabolic Panel 06/07/2024 3:35 PM TACKING STITCH REMOVER - 06/07/2024 11:59 PM TACKING STITCH REMOVER Hospital Encounter Department of Laboratory Medicine in [address] [phone] Christina Ko M.D. Hypertension Essential Primary Discharge Disposition: Home or Self Care 06/07/2024 3:00 PM TACKING STITCH REMOVER Office Visit Department of [facility], [facility] [place], in [address] [phone] Christina Ko M.D. Hypertension Essential Primary (Primary Dx); Insomnia 05/17/2024 Clinical Communication Department of [facility], [facility] [place], in [address] [address] Richelle Adams R.N. Quality (HTN) 04/12/2024 Orders Only [facility] Christina Ko M.D. Monitoring For Therapeutic Drug Therapy from Last 3 Months Immunizations Immunization Administration Dates Next Due HepB Adult 08/18/2023(Deferred: Patient decision - patient states she received the series in [place]) MMR 07/08/2022 SARS-COV-2 (COVID-19) - MODERNA(Discontinued) 08/18/2023(Deferred: [...] Tobacco: Never Tobacco Cessation:Counseling Given: Not Answered [facility] Utilities Answer Date Recorded In the past 12 months has th e [employer], gas, oil, or water [email or web address] threatened to shut off services in your [...] living situation today? I have a [facility] place to live 10/20/2023 Comments No Sex [...] e BP Pulse 69 06/07/2024 3:03 PM TACKING STITCH REMOVER Temperature 36.7 C (98.1 F) 06/07/2024 2:51 PM TACKING STITCH REMOVER Respiratory Rate 16 08/18/2023 3:55 PM CDT Oxygen Saturation - - Inhaled Oxygen Concentration - - Weight 91 kg (200 lb 9.9 oz) 06/07/2024 2:51 PM TACKING STITCH REMOVER Height 170 cm (5' 6.93) 06/07/2024 2:51 PM TACKING STITCH REMOVER Body Mass Index 31.49 06/07/2024 2:51 PM TACKING STITCH REMOVER Plan of Treatment Health Maintenance Due Date [...] METABOLIC PANEL, S/P Routine 06/07/2024 3:50 PM TACKING STITCH REMOVER Hypertension Essential Primary BI BREAST SCREENING BILATERAL WITH TOMOSYNTHESIS RAD - Routine (most inpatients and all outpatients) 12/16/2023 1:40 PM CDT Screening Mammogram Breast Cancer LIPID PANEL, S Routine 10/30/2022 11:27 AM CDT Maintenance Health Adult from Last 3 Months or Most Recently Relevant to Health Maintenance Results * (ABNORMAL) Basic Metabolic Panel (06/07/2024 3:50 PM TACKING STITCH REMOVER) Potassium, P 4.2 3.6 - 5.2 mmol/L 06/07/2024 6:49 PM TACKING STITCH REMOVER OWAT Sodium, P 139 135 - 145 mmol/L 06/07/2024 6:49 PM TACKING STITCH REMOVER OWAT Chloride, P 104 98 - 107 mmol/L 06/07/2024 6:49 PM TACKING STITCH REMOVER OWAT Bicarbonate, P 19(L) 22 - 29 mmol/L 06/07/2024 6:49 PM TACKING STITCH REMOVER [employer]AT Anion Gap, P 16(H) 7 - 15 06/07/2024 6:49 PM TACKING STITCH REMOVER OWAT BUN (Blood Urea Nitrogen), P 8 6 - 21 mg/dL 06/07/2024 6:49 PM TACKING STITCH REMOVER OWAT Creatinine 0.62 0.59 - 1.04 mg/dL 06/07/2024 6:49 PM TACKING STITCH REMOVER OWAT Estimated GFR (eGFR) >90 >=60 mL/min/BSA 06/07/2024 6:49 PM TACKING STITCH REMOVER OWAT Comment: Estimated GFR calculated using the 2020 CKD_EPI creatinine equation. Calcium, Total, P 10.2(H) 8.6 - 10.0 mg/dL 06/07/2024 6:49 PM TACKING STITCH REMOVER OWAT Glucose, P 75 70 - 140 mg/dL 06/07/2024 6:49 PM TACKING STITCH REMOVER OWAT Blood (Blood, Venous) 06/07/2024 3:50 PM TACKING STITCH REMOVER 06/07/2024 5:50 PM TACKING STITCH REMOVER us Christina Ko M.D. LAB BLOOD ADD-ON Final Resul t [facility] [address], [place] [address], [facility] OWAT [facility] [place] [address] [place] [address] * BI Breast Screening Bilateral with Tomosynthesis [...] M.D. LAB BLOOD ADD-ON Final Resul t [facility] [address] [place] [address], [place] OWAT [facility] [place] [address] [place] [address] from Last 3 Months or Most Recently Relevant to Health Maintenance Insurance [facility] Care Teams Manufacturing Process Technician Relationship Specialty Start Date End Date Christina Ko M.D. [address] [place] [address] [place] [phone] PCP - General Family Medicine 08/15/22
--- OUTSIDE RECORDS SUMMARY | 2024-06-27 07:11 | XMS_ITS | Encounter Summary ---
Author Organization [facility] Address [address] [place] [address] Care Team Providers Care Shipyard Laborer Name Role Phone Christina Ko M.D. Primary Care Provider Encounter Details Date Type Department Care Team (Late st Contact Info) Description 06/09/2024 Results Follow-Up Department of Family Medicine, [facility], in [place], [place] [address] [facility] [place] [phone] Petar Tenorio, L.P.N. [address], [place] [address] Basic Metabolic Panel Social History Tobacco Use Types Packs/Day Years Used Date Smoking Tobacco: Former Cigarettes Smokeless Tobacco: Never [facility] Utilities Answer Date Recorded In [...] your living situation today? I have a [facility] place to live 10/20/2023 Comments No Sex [...] on filedocumented in this encounter Care Teams Shipyard Laborer Relationship Specialty Start Date End Date Christina Ko M.D. [address] [place] [phone] PCP - General Family Medicine 08/15/22 documented as of this encounter
--- OUTSIDE RECORDS SUMMARY | 2024-06-27 07:11 | XMS_ITS | Encounter Summary ---
Author Organization [facility] Address [address] [place] [address] Care Team Providers Care Ict Business Analyst Name Role Phone No Ref-Primary, Physician Primary Care Provider Venu Mcclelland MD Unavailable [phone] Ramsey Mahoney MD Unavailable [phone] Barron Chase DO Unavailable [phone] Christina Ko MD Primary Care Provider [phone] Encounter Details Date Type Department Care Team (Late st Contact Info) Description 08/27/2023 MyC Medical Advice [facility] [address] [place] [address] Erma Waggoner RN Social History [...] often do you attend chur ch or voodoo services? 1 to 4 times per year [...] Date Recorded PHQ-2 Score 1 07/27/2023 [facility] - [...] in an abandoned building, in an overnight halfway, or couch-surfing.) Yes 07/23/2023 Are you worried [...] on file Legal Sex Female 8:32 PM [employer] Gender Identity Not on file Sexual Orientation Not on file documented as of this encounter Plan of Treatment Not on file documented as of this encounter Visit Diagnoses Not on filedocumented in this encounter Care Teams Ict Business Analyst Relationship Specialty Start Date End Date No Ref-Primary, Physician PCP - General 05/04/23 12/11/23 Christina Ko MD [address] [place] [phone] PCP - General 12/12/23 Venu Mcclelland MD [address] [address] Assigned OBGYN Provider 07/28/23 Ramsey Mahoney MD [address] [place] [address] Physician Neurology 08/04/23 [place] [address] [place] [address] Assigned PCP 08/27/23 documented as of this encounter
== END 2024-06-27 07:36 | disposition left against medical advice (07) ==
PROVIDERS: Emergency Provider Family Medicine; PCP Family Medicine
DX: M54.2 Cervicalgia (principal); R68.84 Jaw pain; S80.812A Abrasion, left lower leg, initial encounter; S80.811A Abrasion, right lower leg, initial encounter; W10.9XXA Fall (on) (from) unspecified stairs and steps, initial encounter
CPT/HCPCS: 99281; 99283; 99284